=== PATIENT | female | born 1935 | race Caucasian/White ===

== ENCOUNTER 2020-06-29 07:10 | Outpatient (REF) | payer MEDICARE, SELFPAY ==
[2020-06-29 11:06] LABS: MANUAL DIFF FLAG NO
[2020-06-29 11:18] LABS: Basophils Absolute Auto 0.1 X10*3/uL (0.0-0.2); Basophils Percent Auto 0.6 % (0-2); Eosinophils Absolute Auto 0.7 X10*3/uL (0.0-0.4); Eosinophils Percent Auto 8.4 % (0-4); Hematocrit 47.8 % (37-47); Hemoglobin 16.6 g/dl (12.0-16.0); Imm Gran Abs Auto 0.02 X10*3/uL (0.00-0.03); Imm Gran Pct Auto 0.2 % (0.0-0.4); Lymphocytes Absolute Auto 1.5 X10*3/uL (1.2-4.9); Lymphocytes Percent Auto 17.9 % (20-40); Mean Corpuscular HGB Conc 34.7 g/dl (31.0-35.0); Mean Corpuscular Hemoglobin 33.3 pg (27.0-33.0); Mean Platelet Volume 10.4 fL (9.4-12.3); Monocytes Absolute Auto 0.8 X10*3/uL (0.1-1.2); Monocytes Percent Auto 9.8 % (2-11); Neutrophils Absolute Auto 5.3 X10*3/uL (2.0-8.3); Neutrophils Percent Auto 63.1 % (45-73); Platelet Count 363 X10*3/uL (160-400); Red Blood Count 4.98 X10*6/uL (4.20-5.50); Red Cell Distribution Width 13.4 % (11.0-16.0); White Blood Count 8.5 X10*3/uL (4.8-10.8)
[2020-06-29 11:25] LABS: Estimated Average Glucose 108 mg/dL; Hemoglobin A1C 149.5618 umol/L; Hemoglobin A1c % 5.4 %
[2020-06-29 11:47] LABS: Alanine Aminotransferase 23 U/L (0-31); Alkaline Phosphatase 85 U/L (39-117); Anion Gap 15 (12-20); Aspartate Amino Transferase 21 U/L (5-31); Blood Urea Nitrogen 10 mg/dL (9-16); Calcium 9.7 mg/dL (8.4-10.2); Carbon Dioxide 29 mmol/L (22-29); Chloride 94 mmol/L (96-108); Cholesterol 186 mg/dL; Estimated Glomerular Filt Rate > 60; Glucose Fasting 115 mg/dL (60-99); HDL Cholesterol 75 mg/dL; LDL Cholesterol Calculated 91 mg/dl; Potassium 3.7 mmol/L (3.3-5.1); Sodium 134 mmol/L (135-145); Total Protein 6.8 g/dL (6.5-8.0); Triglycerides 101 mg/dL
[2020-06-29 12:10] LABS: TSH reflex Free T4 0.62 uIU/mL (0.32-4.0)
[2020-06-29 12:28] LABS: Glucose Urine UA NEG (NEG); Leukocyte Esterase Urine 1+ (NEG); Nitrite Urine POS (NEG); PH 7.5 (5.0-8.0); UACC Culture Trigger YES; Urine Blood NEG (NEG); Urine Ketones NEG (NEG); Urine Protein NEG (NEG-TRACE)
[2020-06-29 12:39] LABS: Appearance Urine HAZY; Color Urine YELLOW
[2020-06-29 14:42] LABS: RBC Urine 0 /HPF (0); Squamous Epithelial Cell Urine 1+ /LPF
[2020-06-29 14:43] LABS: Renal Epithelial Cells Urine 1+ /LPF
== END 2020-06-29 07:11 | disposition home or self-care (01) ==
LOC: HO.HMGCLDS 07:10
PROVIDERS: PCP Internal Medicine; Visit Provider Internal Medicine
DX: E87.1 Hypo-osmolality and hyponatremia (principal); I10 Essential (primary) hypertension; E78.00 Pure hypercholesterolemia, unspecified; R73.01 Impaired fasting glucose; D75.1 Secondary polycythemia
CPT/HCPCS: 36415; 80053; 80061; 81001; 81003; 83036; 84443; 85025; 87086; 87088; 87186

== ENCOUNTER 2020-11-10 10:37 | Outpatient (REF) | payer MEDICARE, SELFPAY ==
--- NOTE | ~2020-11-10 | XR_ITS ---
EXAMINATION: XR LUMBOSACRAL SPINE CLINICAL INFORMATION: Chronic low back pain. COMPARISON: Report from chest radiograph 06/29/2012. TECHNIQUE: Three views of the lumbosacral spine. FINDINGS: There is normal lumbar segmentation with 5 [id number] lumbar vertebrae. There is a dextrocurvature of mid lumbar spine. There are prominent multilevel degenerative disc and degenerative facet changes, greatest at L1-L2 through L4-L5, and lesser at L5-S1. There is disc narrowing and variable vacuum disc and endplate sclerosis and vertebral spurring. Partially bridging osteophytes are present. The superior endplate of L1 shows depression of approximately 20%, likely chronic given the associated degenerative changes superiorly. There are no erosive changes. There is borderline retrolisthesis L3 on L4 and there is retrolisthesis grade 0-1 of L4 with respect to L3 and L5, likely related to the degenerative disc and degenerative facet changes. The posterior spinous processes of L4 and L5 are not well visualized. Difficult to determine if prior surgery at these levels. Clinically correlate. XR/XR lumbar spine 2-3V IMPRESSION: 1. Diffuse prominent multilevel degenerative disc and degenerative facet changes. 2. Mild superior endplate depression of L1, possibly chronic. 3. Variable retrolisthesis L3 on L4 and at L4 with respect to L3 and L5. 4. Posterior spinous processes L4 and L5 not well visualized, question prior surgery at these levels. Clinically correlate.
== END 2020-11-10 10:38 | disposition home or self-care (01) ==
LOC: HO.HMGCX 10:37
PROVIDERS: PCP Internal Medicine; Visit Provider Chiropractor
DX: M54.5 Low back pain (principal); Z91.81 History of falling
CPT/HCPCS: 72100

== ENCOUNTER 2020-11-23 08:34 | Outpatient (REF) | payer SELFPAY ==
--- NOTE | 2020-11-23 09:14 | MHC.AU.HFU ---
Hearing Instrument Follow-Up- Binaural Date of Visit: 11/23/20 Right Ear: County Agricultural Agent: Phonak Model: Virto V50-312 Serial Number: [id number] Repair Warranty: 04/08/2018 Loss and Damage Warranty: 04/08/2018 Battery Size: 312 Color: [place] Type of Wax Guard: Cerustop Dispensed By: [facility] Date of Fittin03/25/2015 Left Ear: County Agricultural Agent: Phonak Model: Virto V50-312 Serial Number: [id number] Repair Warranty: 04/08/2018 Loss and Damage Warranty: 04/08/2018 Battery Size: 312 Color: [place] Type of Wax Guard: Cerustop Dispensed By: [facility] Date of Fittin03/25/2015 Follow-Up Summary: Patient reports that the left hearing aid stopped working. Both hearing aids were inspected. Solvent Plant Operator in left instrument was occluded w/cerumen, which was cleaned out. Wax traps replaced. Microphones vacuumed. Debris cleaned out of battery compartments. Vents cleaned. Both hearing aids are amplifying clearly after maintenance. Patient did not feel any programming changes were necessary. Recommendations: Hearing instrument follow-up or maintenance as needed. Please contact our clinic with any questions or concerns. Paid $10 maintenance. Diagnosis Code(s): Primary Diagnosis: H90.3 Bilateral Sensorineural Hearing Loss Signature: Provider: Yuri Valadez, [facility]
== END 2020-11-23 08:35 | disposition home or self-care (01) ==
LOC: HO.HAP 08:34
PROVIDERS: Visit Provider Internal Medicine
DX: Z46.1 Encounter for fitting and adjustment of hearing aid (principal); H90.3 Sensorineural hearing loss, bilateral
CPT/HCPCS: 99499

== ENCOUNTER 2020-12-01 09:38 | Inpatient (IN) | payer MEDICARE, SELFPAY ==
--- NOTE | ~2020-12-01 | XR_ITS ---
EXAMINATION: XR HAND, RIGHT CLINICAL INFORMATION: Finger laceration. COMPARISON: None TECHNIQUE: PA, lateral, and oblique views of the right hand. FINDINGS: Positioning is suboptimal. Bandages overlie the second digit. Mild interphalangeal, metacarpophalangeal and first carpometacarpal degenerative joint changes are seen. There is no acute fracture or dislocation. Mild soft tissue swelling is seen in the second digit. No radiopaque foreign body. XR/XR hand RT 2V IMPRESSION: 1. Limited study showing mild soft tissue swelling in the second digit without radiopaque foreign body. No acute underlying osseous abnormality is seen. 2. Mild degenerative joint changes most consistent with osteoarthritis.
--- NOTE | ~2020-12-01 | CT_ITS ---
EXAMINATION: CT CERVICAL SPINE WITHOUT CONTRAST CLINICAL INFORMATION: Fall COMPARISON: December 01, 2020 TECHNIQUE: CT cervical spine without intrathecal contrast. Sagittal and coronal reconstructions. This CT examination was performed using dose optimization techniques as appropriate, variously including the following: *Automated exposure control *Adjustment of mA and/or kV according to patient size (this includes techniques or standardized protocols for targeted exams where dose is matched to indication/reason for exam; i.e. extremities or head) *Use of iterative reconstruction technique DLP: 297.20 mGy-cm FINDINGS: No abnormal prevertebral soft tissue swelling is seen. No acute cervical spine fracture is noted. Paraspinal muscle soft tissue planes are maintained. There is disc space narrowing at this C5-C6 and C6-C7 levels with posterior spurring. There is spurring at the C1-C2 disc level. There is facet arthropathy seen C3-C5. No significant neural foraminal narrowing identified. There is a 9 x 5 mm calcified meningioma about the left petrous ridge adjacent to the cerebellar pontine angle. Pterygoid plates intact. Visualized paranasal sinuses and mastoid air cells unremarkable. There are significant changes of paraseptal and centrilobular emphysema within the lung apices bilateral. Bilateral apical pleural plaques with calcification noted. There is flattening of the mandibular condyles bilaterally. CT/CT cervical spine wo con IMPRESSION: No acute cervical spine fracture. Cervical spondylosis at multiple levels as described. 9 x 5 mm calcified meningioma about the left cerebellar pontine angle.
--- NOTE | ~2020-12-01 | CT_ITS ---
EXAMINATION: CT HEAD WITHOUT CONTRAST CLINICAL INFORMATION: Fall COMPARISON: December 01, 2020 and February 25, 2010 TECHNIQUE: Contiguous axial imaging was performed from the skull base to vertex without intravenous administration of contrast. This CT examination was performed using dose optimization techniques as appropriate, variously including the following: *Automated exposure control *Adjustment of mA and/or kV according to patient size (this includes techniques or standardized protocols for targeted exams where dose is matched to indication/reason for exam; i.e. extremities or head) *Use of iterative reconstruction technique DLP: 650.10 mGy-cm FINDINGS: There is no evidence of acute intracranial hemorrhage or new territorial infarction. No abnormal mass effect or midline shift is seen. There is periventricular white matter low density consistent with microangiopathy. Lacunar infarct is seen within the right cordate head. There is diminished density within the left central summary ovale which is unchanged. There is also a lacunar infarct involving the left anterior limb of the internal capsule. No extra-axial fluid collections are identified. The ventricles are normal in size. There is no abnormal attenuation within the brain parenchyma. The osseous structures and soft tissues are normal. The mastoid air cells and visualized portions of the paranasal sinuses are well aerated. Carotid and vertebral artery calcification present. CT/CT head/brain wo con IMPRESSION: No acute intracranial pathology. 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 No change from study of December 01, 2020
--- NOTE | ~2020-12-01 | CT_ITS ---
EXAMINATION: CT BRAIN AND CT CERVICAL SPINE WITHOUT CONTRAST. CLINICAL INFORMATION: Fall. COMPARISON: None TECHNIQUE: Axial 5 mm thin and reformatted 2 mm thin sagittal and coronal images of brain were obtained. 3 mm thin axial and reformatted 2 mm thin sagittal and coronal images of cervical spine were obtained. DLP 858 mGy FINDINGS: Brain: There is no acute intra-axial, extra-axial bleed, collection, masses or midline shift. No acute infarction evolution seen. The lateral ventricles are symmetrical in size and configuration without enlargement. The diego to white matter differentiation is maintained normal. There is is small 7 mm hypodensity in the left centrum semiovale likely small lacunar infarction of indeterminate age on axial image 14/8. Bone windows reveal no calvarial abnormality. There is no scalp soft tissue abnormality. Bilateral paranasal sinuses and mastoid air cells are well-aerated. Cervical spine: There is normal cervical lordosis. The vertebral heights, alignment is normal. There is loss of C6-C7 disc height with ventral, posterior spondylosis and moderate left facet joint arthropathy and hypertrophy. Rest of the disc heights are normal. The craniovertebral junction appears normal. There is mild superior osteophytosis C1-C2 disc level. There is mild right C5-C6 facet joint arthropathy and hypertrophy. The prevertebral, parapharyngeal and paravertebral soft tissues are normal. The airway is widely patent. Is diffuse emphysematous changes are seen in the lung apices with bullous findings. CT/CT cervical spine wo con IMPRESSION: No acute intracranial process seen. Small lacunar infarcts left centrum semiovale of indeterminate age. No mass effect. There is no acute fracture, dislocation subluxation seen in the cervical spine. There are degenerative disc changes with moderate left facet joint arthropathy and hypertrophy C6-C7 disc level.
--- NOTE | ~2020-12-01 | NM_ITS ---
EXAMINATION: THREE PHASE BONE SCAN CLINICAL INFORMATION: Lower back pain, concern for discitis.. COMPARISON: No previous bone scan is available for comparison. The diagnostic CT scan of the abdomen and pelvis, dated 12/01/2020, is available for comparison.. TECHNIQUE: Initial rapid sequence images were obtained over the lumbosacral and lower thoracic spine in the anterior and posterior projections during the bolus injection of 18 mCi Tc-99m MDP. Static images of the whole-body with multiple projections of the thorax and pelvis were then obtained 3.25 hours post injection. FINDINGS: Initial rapid sequence images show no foci of abnormally increased flow in the visualized lumbosacral and lower thoracic spine. The visualized vascular flow and flow to the kidneys, liver, and spleen appear unremarkable The delayed static images show: In the head, no significant abnormalities are present. In the thoracic cage and upper extremities, no significant abnormalities are present. In the spine, there is a mild thoracolumbar scoliosis with lumbar convexity to the right. There is mildly increased activity in the T12 and L1 vertebra, likely involving the vertebral bodies. Additional abnormalities are present in the lower lumbar spine, most prominently in the right posterior elements at L4-L5. In the pelvis, no significant abnormalities are present. In the lower extremities, there is a mild diffuse increase in activity which is just barely perceptible in the left hip. There are also very mild foci of increased activity present in both knees. The CT scan dated 12/01/2020 shows degenerative changes in the lumbosacral spine the correspond to bone scan abnormalities described above. There is to approximately 40% anterior compression deformity of L1 and approximately 30% compression deformity of the superior endplate of T8. The latter shows no corresponding bone scan abnormality suggesting it is chronic, but some abnormality is present at L1 on this bone scan suggesting this is a subacute compression fracture, or possibly compression fractures superimposed on chronic degenerative changes. NM/NM bone 3 phase IMPRESSION: Nonspecific abnormalities in the lumbosacral and lower thoracic spine are most likely degenerative in etiology possibly with a superimposed compression fracture at L1. There are no flow abnormalities that would strongly suggest active infection in this region.
--- NOTE | ~2020-12-01 | CT_ITS ---
EXAMINATION: CT CHEST, ABDOMEN AND PELVIS WITH CONTRAST CLINICAL INFORMATION: Pain status post fall. COMPARISON: None TECHNIQUE: Multidetector volumetric imaging was performed of the chest, abdomen and pelvis without administration of intravenous contrast. Sagittal and coronal reformatted images were obtained on the technologist's workstation. Lack of intravenous and oral contrast limits visceral evaluation. This CT examination was performed using dose optimization techniques as appropriate, variously including the following: *Automated exposure control *Adjustment of mA and/or kV according to patient size (this includes techniques or standardized protocols for targeted exams where dose is matched to indication/reason for exam; i.e. extremities or head) DLP: 602 mGy-cm FINDINGS: CHEST: LUNGS/PLEURA/AIRWAYS: Moderate to severe upper lobe predominant centrilobular paraseptal emphysema is seen. Mild biapical pleural thickening and scarring with mild calcification is seen. Nodular scarring with calcification is seen posteriorly in the right upper lobe as well. No suspicious nodules are seen. Mild bibasilar linear atelectasis versus scarring is seen. There are no pleural effusions. The airways are patent. MEDIASTINUM: The thyroid gland shows a coarsely calculi nodule anteriorly in the right midpole measuring 1.1 cm (image 8, series 3). A smaller calcification posteriorly in the midpole measures 0.3 cm. The thyroid gland is otherwise unremarkable. Mild atherosclerosis is seen in the thoracic aorta. The ascending aorta measures up to 4.1 cm in AP dimension (image 35, series 3). Mild coronary artery calcifications are seen. There is a very small pericardial effusion. There is cardiac compression from an overlying pectus excavatum deformity. CHEST LYMPH NODES: No mediastinal or hilar lymphadenopathy is seen. SOFT TISSUES: Unremarkable. ABDOMEN/PELVIS: LIVER, GALLBLADDER, AND BILIARY TREE: Hepatic prominence with extension into the left upper quadrant, but no focal abnormality. The gallbladder is unremarkable. PANCREAS: Unremarkable. SPLEEN: Unremarkable. ADRENAL GLANDS: Unremarkable. KIDNEYS AND URETERS: No retained right kidney without other significant renal/ureteral abnormality bilaterally. BLADDER: Unremarkable. GASTROINTESTINAL TRACT: The stomach, small bowel and appendix are unremarkable. The colon shows scattered mild to moderate diverticulosis, most pronounced in the descending and sigmoid colon. LYMPH NODES: No lymphadenopathy. VASCULAR: Moderate to severe atherosclerosis in the abdominal aorta and iliac vessels, most pronounced in the infrarenal segment of the abdominal aorta without aneurysmal dilatation. PELVIC VISCERA: Unremarkable. MUSCULOSKELETAL: There is approximate 30% compression deformity of the superior endplate of T8. Additionally is an approximate 40% anterior compression deformity of L1. Severe degenerative disc disease is seen from L1 to the L4-5. Mild lumbar dextro scoliosis is seen as well with apex at L3-4. SOFT TISSUES: Unremarkable. CT/CT abdomen pelvis wo con IMPRESSION: 1. No definitive acute abnormality in the chest, abdomen and pelvis. 2. Multilevel degenerative changes in the thoracolumbar spine. Multilevel vertebral body compression deformities as detailed above do not demonstrate acute features. Pectus excavatum deformity. 3. Several incidental findings detailed above without acute abnormality.
--- NOTE | 2020-12-01 09:30 | ED_ITS ---
HPI - Weakness General Chief complaint: Weakness Stated complaint: failure to thrive Time Seen by Provider: 12/01/20 09:48 Source: patient, EMS and old records reviewed Mode of arrival: EMS Limitations: other (poor historian) History of Present Illness MD Complaint: generalized weakness and difficulty walking Onset (ago): day(s) (?2) Duration: constant Location: generalized Migration: none Severity: moderate Relieving factors: none Exacerbating factors: movement Context: other (states she has fallen 3 to 5 times, she is weak, her neck and back hurt, denies LOC) Associated symptoms: loss of appetite and myalgias Related Data Previous Rx's Medication Instructions Recorded potassium chloride 10 mEq 10 meq PO DAILY 90 Days #90 tab 07/09/20 tablet,extended release (Klor-Con) lorazepam 1 mg tablet 0.5 mg PO BID PRN 30 Days #60 tab 10/02/20 hydrochlorothiazide 25 mg tablet 25 mg PO DAILY 90 Days #90 tab 11/06/20 losartan 100 mg tablet 100 mg PO DAILY #90 tab 11/08/20 Allergies Allergy/AdvReac Type Severity Reaction Status Date / Time No Known Allergies Allergy Verified 07/09/20 08:52 [No Known Allergies*] Review of Systems Review of Systems: Constitutional : No Weight loss, No Fever, No Chills, pos Fatigue, pos Malaise ENT/Mouth : No sore throat, No Rhinorrhea Eyes: No Eye Pain, No Swelling, No Redness Cardiovascular : No Chest Pain, No SOB, No Dyspnea on Exertion, No Orthopnea, No Edema, No Palpitations Respiratory : No Cough, No Sputum, No Wheezing Gastrointestinal : No Nausea, No Vomiting, No Diarrhea, No Constipation, No abdominal Pain, No Hematochezia, No Melena Genitourinary : No Dysuria, No Urinary Frequency, No Hematuria, Musculoskeletal : pos joint pain, pos Myalgias, No Joint Swelling Skin : No Skin Lesions, No rash Neuro : pos Weakness, No Numbness, No Dizziness, No Headache Psych : No Anxiety/Panic, No Depression Heme/Lymph: No Bruising, No Bleeding,No Lymphadenopathy Endocrine : No Polyuria, No Polydipsia All other systems reviewed and are negative PMFSH Past Medical History Attestation statement: The following information was validated with the patient. Medical History Alcohol use Anxiety Benign essential hypertension Dermatitis, eczematoid Hyponatremia Impaired fasting glucose Polycythemia Pure hypercholesterolemia Smoker Surgical History History of cataract extraction with lens replacement Status post total abdominal hysterectomy and bilateral salpingo-oophorectomy (RAMON-BSO) Family History Family History Other Family history non-contributory Social History Social History Alcohol intake: current Cigarettes Per Day: 8 Advance Directives: No Advance Directives Information Provided: Yes Physical Exam Vital Signs: Vital Signs: Last Vital Signs Temp 97.4 F 12/01/20 09:51 Pulse 104 H 12/01/20 09:51 Resp 18 12/01/20 09:51 BP 117/63 12/01/20 09:51 Body Mass Index 17.5 Appearance: Alert. Oriented X3. No acute distress. Withdrawn, cachectic, frail Eyes: Pupils equal, round and reactive to light. ENT: Pharynx normal. Neck: Normal inspection. Neck supple. CVS: Normal heart rate and rhythm. Pulses normal. Respiratory: No respiratory distress. Breath sounds normal. Abdomen: Soft and nontender. Skin: Skin warm and dry. pale skin color. poor skin turgor. Extremities: No lower extremity edema. multiple stages of bruising noted on extremities Neuro: Oriented X 3. No motor deficit. No sensory deficit. Course Course Course Narrative: plan for admit, repleting K empiric rocephin possible UTI boyd scan negative for acute trauma MDM - Weakness MDM Narrative Medical decision making narrative: 85 yo female with hx of ETOH HLD, hyponatremia comes in with weakness and falls she is a poor historian will obtain labs boyd CT scan for trauma, anticipate admission or rehab, hx of ETOH abuse Lab Data Result diagrams: 12/01/20 10:01 12/01/20 10:01 Labs: Lab Results 12/01/20 12/01/20 12/01/20 Range/Units 10:01 10:01 10:01 WBC 34.1 H* (4.8-10.8) X10*3/uL RBC 4.22 (4.20-5.50) X10*6/uL Hgb 14.1 (12.0-16.0) g/dl Hct 37.9 D (37-47) % MCV 89.8 (80-98) fL MCH 33.4 H (27.0-33.0) pg MCHC 37.2 H (31.0-35.0) g/dl RDW 13.1 (11.0-16.0) % Plt Count 304 (160-400) X10*3/uL MPV 9.8 (9.4-12.3) fL Immature Gran % (Auto) Cancelled Neut % (Auto) Cancelled Lymph % (Auto) Cancelled Freeborn % (Auto) Cancelled Eos % (Auto) Cancelled Baso % (Auto) Cancelled Lymph # (Auto) Cancelled Freeborn # (Auto) Cancelled Eos # (Auto) Cancelled Baso # (Auto) Cancelled Abs Immat Gran (auto) Cancelled Absolute Neuts (auto) Cancelled Absolute Nucleated RBC 0.000 (0.0-0.012) X10*3/uL Nucleated RBC % (auto) 0.0 (0.0-0.2) /100WBC Neutrophils % (Manual) 86 H (45-73) % Band Neutrophils % 10 H (3-5) % Lymphocytes % (Manual) 1 L (20-40) % Monocytes % (Manual) 3 (2-11) % Abs Neuts (Manual) 32.7 H (2.2-7.9) X10*3/uL Lymphocytes # (Manual) 0.3 L (0.6-4.8) X10*3/uL Monocytes # (Manual) 1.0 (0.0-1.2) X10*3/uL Toxic Vacuolation PRESENT Platelet Estimate NORMAL (NORMAL) Large Platelets PRESENT Plt Morphology Comment NOTED RBC Morphology NOTED Angel Cells 2+ (3-5) /OIF PT (9.9-13.0) SEC INR (0.9-1.1) APTT (24.1-38.0) SEC Sodium 129 L (135-145) mmol/L Potassium 2.8 L D (3.3-5.1) mmol/L Chloride 92 L (96-108) mmol/L Carbon Dioxide 23 (22-29) mmol/L Anion Gap 17 (12-20) BUN 29 H D (9-16) mg/dL Creatinine 0.94 (0.5-1.4) mg/dL Estim Creat Clear Calc 36.3 Estimated GFR 57 Random Glucose 102 (60-115) mg/dL Lactic Acid 2.4 H* (0.5-2.0) mmol/L Calcium 9.8 (8.4-10.2) mg/dL Magnesium 1.8 (1.6-2.6) mg/dL Total Bilirubin 1.5 H (0.0-1.0) mg/dL Direct Bilirubin 0.7 H (0.0-0.5) mg/dL AST 42 H D (5-31) U/L ALT 28 (0-31) U/L Alkaline Phosphatase 115 D (39-117) U/L Total Creatine Kinase 872 H (26-140) U/L Troponin I High Sens (<3.5-17.0) ng/L Total Protein 5.5 L (6.5-8.0) g/dL Albumin 3.1 L D (3.5-5.0) g/dL Lipase 4 L (8-78) U/L Ethyl Alcohol mg/dL COVID-19 (RANDY) (Negative) COVID-19 Clin Com 12/01/20 12/01/20 12/01/20 Range/Units 10:01 10:01 10:01 WBC (4.8-10.8) X10*3/uL RBC (4.20-5.50) X10*6/uL Hgb (12.0-16.0) g/dl Hct (37-47) % MCV (80-98) fL MCH (27.0-33.0) pg MCHC (31.0-35.0) g/dl RDW (11.0-16.0) % Plt Count (160-400) X10*3/uL MPV (9.4-12.3) fL Immature Gran % (Auto) Neut % (Auto) Lymph % (Auto) [place] % (Auto) Eos % (Auto) Baso % (Auto) Lymph # (Auto) [place] # (Auto) Eos # (Auto) Baso # (Auto) Abs Immat Gran (auto) Absolute Neuts (auto) Absolute Nucleated RBC (0.0-0.012) X10*3/uL Nucleated RBC % (auto) (0.0-0.2) /100WBC Neutrophils % (Manual) (45-73) % Band Neutrophils % (3-5) % Lymphocytes % (Manual) (20-40) % Monocytes % (Manual) (2-11) % Abs Neuts (Manual) (2.2-7.9) X10*3/uL Lymphocytes # (Manual) (0.6-4.8) X10*3/uL Monocytes # (Manual) (0.0-1.2) X10*3/uL Toxic Vacuolation Platelet Estimate (NORMAL) Large Platelets Plt Morphology Comment RBC Morphology Angel Cells /OIF PT 13.4 H (9.9-13.0) SEC INR 1.2 H (0.9-1.1) APTT 31.2 (24.1-38.0) SEC Sodium (135-145) mmol/L Potassium (3.3-5.1) mmol/L Chloride (96-108) mmol/L Carbon Dioxide (22-29) mmol/L Anion Gap (12-20) BUN (9-16) mg/dL Creatinine (0.5-1.4) mg/dL Estim Creat Clear Calc Estimated GFR Random Glucose (60-115) mg/dL Lactic Acid (0.5-2.0) mmol/L Calcium (8.4-10.2) mg/dL Magnesium (1.6-2.6) mg/dL Total Bilirubin (0.0-1.0) mg/dL Direct Bilirubin (0.0-0.5) mg/dL AST (5-31) U/L ALT (0-31) U/L Alkaline Phosphatase (39-117) U/L Total Creatine Kinase (26-140) U/L Troponin I High Sens 38.8 H* (<3.5-17.0) ng/L Total Protein (6.5-8.0) g/dL Albumin (3.5-5.0) g/dL Lipase (8-78) U/L Ethyl Alcohol < 10 mg/dL COVID-19 (RANDY) (Negative) COVID-19 Clin Com 12/01/20 Range/Units 11:00 WBC (4.8-10.8) X10*3/uL RBC (4.20-5.50) X10*6/uL Hgb (12.0-16.0) g/dl Hct (37-47) % MCV (80-98) fL MCH (27.0-33.0) pg MCHC (31.0-35.0) g/dl RDW (11.0-16.0) % Plt Count (160-400) X10*3/uL MPV (9.4-12.3) fL Immature Gran % (Auto) Neut % (Auto) Lymph % (Auto) [place] % (Auto) Eos % (Auto) Baso % (Auto) Lymph # (Auto) [place] # (Auto) Eos # (Auto) Baso # (Auto) Abs Immat Gran (auto) Absolute Neuts (auto) Absolute Nucleated RBC (0.0-0.012) X10*3/uL Nucleated RBC % (auto) (0.0-0.2) /100WBC Neutrophils % (Manual) (45-73) % Band Neutrophils % (3-5) % Lymphocytes % (Manual) (20-40) % Monocytes % (Manual) (2-11) % Abs Neuts (Manual) (2.2-7.9) X10*3/uL Lymphocytes # (Manual) (0.6-4.8) X10*3/uL Monocytes # (Manual) (0.0-1.2) X10*3/uL Toxic Vacuolation Platelet Estimate (NORMAL) Large Platelets Plt Morphology Comment RBC Morphology Angel Cells /OIF PT (9.9-13.0) SEC INR (0.9-1.1) APTT (24.1-38.0) SEC Sodium (135-145) mmol/L Potassium (3.3-5.1) mmol/L Chloride (96-108) mmol/L Carbon Dioxide (22-29) mmol/L Anion Gap (12-20) BUN (9-16) mg/dL Creatinine (0.5-1.4) mg/dL Estim Creat Clear Calc Estimated GFR Random Glucose (60-115) mg/dL Lactic Acid (0.5-2.0) mmol/L Calcium (8.4-10.2) mg/dL Magnesium (1.6-2.6) mg/dL Total Bilirubin (0.0-1.0) mg/dL Direct Bilirubin (0.0-0.5) mg/dL AST (5-31) U/L ALT (0-31) U/L Alkaline Phosphatase (39-117) U/L Total Creatine Kinase (26-140) U/L Troponin I High Sens (<3.5-17.0) ng/L Total Protein (6.5-8.0) g/dL Albumin (3.5-5.0) g/dL Lipase (8-78) U/L Ethyl Alcohol mg/dL COVID-19 (RANDY) Negative (Negative) COVID-19 Clin Com See Note ECG Data Attestation: I personally reviewed and interpreted this ECG as follows: ECG interpretation date: 12/01/20 ECG interpretation time: 09:49 Interpretation: Rate: 122 Rhythm: sinus tachycardia with PACs Stout: normal tall P waves. Normal LESIA. Normal QRS complex. ST T wave : nonspecific, ?u waves qTC: normal prior studies: no acute ischemia The study has been interpreted contemporaneously by me. . Discharge Plan Discharge Clinical Impression: Acute hyponatremia, Acute hypokalemia, Falls, Acidosis, lactic, Leukocytosis, Adult failure to thrive Patient Disposition: Admitted As Inpatient Prescriptions: No Action lorazepam 1 mg tablet 0.5 mg PO BID PRN (Reason: anxiety) 30 Days Qty: 60 RF: 0 hydrochlorothiazide 25 mg tablet 25 mg PO DAILY 90 Days Qty: 90 RF: 0 losartan 100 mg tablet 100 mg PO DAILY Qty: 90 RF: 1 potassium chloride [Klor-Con 10] 10 mEq tablet extended release 10 meq PO DAILY 90 Days Qty: 90 RF: 3
[2020-12-01 09:34] VITALS: BP 115/69; PULSE 78; RESP 18
--- NOTE | 2020-12-01 09:38 | ECG_ITS ---
Test Reason : FALL Blood Pressure : / mmHG Vent. Rate : 122 BPM Atrial Rate : 133 BPM P-R Int : 200 ms QRS Dur : 082 ms QT Int : 286 ms P-R-T Axes : 080 078 029 degrees QTc Int : 407 ms Sinus tachycardia with premature supra-ventricular complexes Low voltage QRS Cannot rule out Anteroseptal infarct (cited on or before 13-NOV-2015) Abnormal ECG When compared with ECG of 13-NOV-2015 09:48, Vent. rate has increased BY 48 BPM T wave inversion now evident in Inferior leads Premature supraventricular complexes are now Present Referred By: Elisha Hunt Electronically Signed By:YOHANA ANTONIO
[2020-12-01 09:51] VITALS: BP 104/70; BP 117/63; PULSE 104; RESP 18; TEMP 36.3; BMI 17.5
[2020-12-01] MEDS: 0.9 % Sodium Chloride 1,000 ML 999 ML IVCONT (10:07)
[2020-12-01 10:14] LABS: Hematocrit 37.9 % (37-47); Hemoglobin 14.1 g/dl (12.0-16.0); Mean Corpuscular HGB Conc 37.2 g/dl (31.0-35.0); Mean Corpuscular Hemoglobin 33.4 pg (27.0-33.0); Mean Corpuscular Volume 89.8 fL (80-98); Mean Platelet Volume 9.8 fL (9.4-12.3); Platelet Count 304 X10*3/uL (160-400); Red Blood Count 4.22 X10*6/uL (4.20-5.50); Red Cell Distribution Width 13.1 % (11.0-16.0)
[2020-12-01 10:20] LABS: INTERNATIONAL NORM RATIO 1.2 (0.9-1.1); Prothrombin Time 13.4 SEC (9.9-13.0)
[2020-12-01 10:21] LABS: White Blood Count 34.1 X10*3/uL (4.8-10.8)
[2020-12-01 10:22] LABS: Partial Thromboplastin Time 31.2 SEC (24.1-38.0)
[2020-12-01 10:32] LABS: Ethanol < 10 mg/dL
[2020-12-01] MEDS: cefTRIAXone sodium 1 GM in 0.9 % Sodium Chloride 50 ML IV (10:33)
[2020-12-01] MEDS: Magnesium Sulfate/H2O 2 GM/50 ML PIGGYBACK IV (10:33)
[2020-12-01 10:37] LABS: Alanine Aminotransferase 28 U/L (0-31); Albumin Level 3.1 g/dL (3.5-5.0); Alkaline Phosphatase 115 U/L (39-117); Anion Gap 17 (12-20); Aspartate Amino Transferase 42 U/L (5-31); Bilirubin Direct 0.7 mg/dL (0.0-0.5); Bilirubin Total 1.5 mg/dL (0.0-1.0); Blood Urea Nitrogen 29 mg/dL (9-16); Calcium 9.8 mg/dL (8.4-10.2); Carbon Dioxide 23 mmol/L (22-29); Chloride 92 mmol/L (96-108); Creatinine Clr Calc Pharmacy 36.3; Estimated Glomerular Filt Rate 57; Glucose Random 102 mg/dL (60-115); Lipase 4 U/L (8-78); Magnesium 1.8 mg/dL (1.6-2.6); Potassium 2.8 mmol/L (3.3-5.1); Sodium 129 mmol/L (135-145); Total Protein 5.5 g/dL (6.5-8.0)
[2020-12-01 10:40] LABS: Lactic Acid 2.4 mmol/L (0.5-2.0)
[2020-12-01 10:44] LABS: Band Neutrophils Percent 10 % (3-5); Lymphocytes Absolute Manual 0.3 X10*3/uL (0.6-4.8); Lymphocytes Percent Manual 1 % (20-40); Monocytes Percent Manual 3 % (2-11); Neutrophils Absolute Manual 32.7 X10*3/uL (2.2-7.9); Neutrophils Percent Manual 86 % (45-73)
[2020-12-01 10:45] LABS: Large Platelet PRESENT; Platelet Estimate NORMAL (NORMAL); Platelet Morphology Comment NOTED
[2020-12-01 10:46] LABS: Burr Cells 2+ (3-5) /OIF
[2020-12-01 10:47] LABS: RBC Morphology NOTED; Toxic Vacuolation PRESENT
[2020-12-01] MEDS: Thiamine HCL 100 MG in 0.9 % Sodium Chloride 100 ML 202 MG IV (10:47)
[2020-12-01 10:57] LABS: Troponin-I High Sensitivity 38.8 ng/L (<3.5-17.0)
[2020-12-01] MEDS: Potassium Chloride ER 20 MEQ TAB.ER.PRT 40 MEQ PO (11:17)
[2020-12-01] MEDS: Potassium Chloride/H20 10 MEQ/100 ML PIGGYBACK 100 MEQ IV ×2 (11:18→13:55)
[2020-12-01 11:32] LABS: COVID-19 Test Negative (Negative); IDNOW Serial# 9DD0AD1C
--- NOTE | 2020-12-01 11:34 | PHA.MEDREC ---
Pharmacy Consult ? Medication Reconciliation Pharmacy has completed the medication reconciliation. There are no remarkable issues for provider's attention. Sonam Gardner, DenniseD
[2020-12-01 12:12] LABS: Reflex Lactate? Lactic Acid Added
--- NOTE | 2020-12-01 12:48 | PM.IMHP ---
History of Present Illness Date of Service: 12/01/20 Chief Complaint: weakness 85F vague historian. asked son-in-law to call 911 this AM as she felt too weak to get out of bed. reports several falls over last few days, generalized weakness. denies specific complaints such as fever, chills, cough, sob, chest pain, diarrhea, n/v, dysuria or frequency. in ED found to have leukocytosis, hypokalemia, hyponatremia. given rocephin, potassium, and iv fluids. Review of Systems Review of Systems: Constitutional: Denies fever, denies Chills Eyes: denies blurry vision ENT: denies sore throat CVS: denies chest pain Respiratory: Denies dyspnea GI: no abdominal pain : denies dysuria MSK: denies neck pain Skin: denies rash Neuro: denies specific motor weakness Psych: denies suicidal ideation Endocrine: denies heat/cold intolerance Hematologic: denies easy bleeding Allergy: denies hives [facility] Medical History Alcohol use Anxiety Benign essential hypertension Dermatitis, eczematoid Hyponatremia Impaired fasting glucose Polycythemia Pure hypercholesterolemia Smoker Family History Other Family history non-contributory Surgical History History of cataract extraction with lens replacement Status post total abdominal hysterectomy and bilateral salpingo-oophorectomy (RAMON-BSO) Social History Alcohol intake: current Cigarettes Per Day: 8 Advance Directives: No Advance Directives Information Provided: Yes Meds Allergies Allergy/AdvReac Type Severity Reaction Status Date / Time No Known Allergies Allergy Verified 07/09/20 08:52 [No Known Allergies*] Active Medications: Current Medications Generic Name Dose Route Start Last Admin Trade Name Freq PRN Reason Stop Dose Admin Potassium Chloride 10 meq in 100 mls @ 100 mls/hr 12/01/20 11:00 12/01/20 11:18 IV 12/01/20 12:59 100 mls/hr Q1H NAI Administration Lactated Ringer's 1,000 mls @ 80 mls/hr 12/01/20 12:45 Lr IVCONT .[id number] NAI Ceftriaxone Sodium 1 gm/ 50 mls @ 100 mls/hr 12/02/20 08:00 Sodium Chloride IV Q24H [facility] Lorazepam 0.5 mg 12/01/20 12:44 Lorazepam 0.5 Mg Tablet PO BID PRN anxiety Losartan Potassium 100 mg 12/02/20 09:00 Losartan Potassium 50 Mg Tablet PO DAILY [facility] Protocol Pharmacy Consult 1 each 12/01/20 09:38 Consult Rx Perform Med Rec MISCELLANE ONCE PRN Consult order Potassium Chloride 10 meq 12/02/20 09:00 Potassium Chloride Er 10 Meq Capsule.Er PO DAILY [facility] Physical Exam Vital Signs and Narrative: Vital Signs: Last Vital Signs Temp 97.4 F 12/01/20 09:51 Pulse 104 H 12/01/20 09:51 Resp 18 12/01/20 09:51 BP 117/63 12/01/20 09:51 Body Mass Index 17.5 General: no acute distress, alert, frail appearing HEENT: atraumatic, hard of hearing Neck: normal to visual inspection CVS: S1, S2, rapid irregular Resp: diminished Chest: non tender GI: soft, non tender, non distended : no CVA tenderness Skin: no rashes Extremities: no edema Neuro: Oriented X3, grossly intact Psych: cooperative Results Labs CBC and Chem 7: 12/01/20 10:01 12/01/20 10:01 Labs: Laboratory Results - last 24 hr 12/01/20 12/01/20 12/01/20 10:01 10:01 10:01 MCV 89.8 MCH 33.4 H MCHC 37.2 H RDW 13.1 Plt Count 304 MPV 9.8 Immature Gran % (Auto) Cancelled Neut % (Auto) Cancelled Lymph % (Auto) Cancelled Boundary % (Auto) Cancelled Eos % (Auto) Cancelled Baso % (Auto) Cancelled Lymph # (Auto) Cancelled Boundary # (Auto) Cancelled Eos # (Auto) Cancelled Baso # (Auto) Cancelled Abs Immat Gran (auto) Cancelled Absolute Neuts (auto) Cancelled Absolute Nucleated RBC 0.000 Nucleated RBC % (auto) 0.0 Neutrophils % (Manual) 86 H Band Neutrophils % 10 H Lymphocytes % (Manual) 1 L Monocytes % (Manual) 3 Abs Neuts (Manual) 32.7 H Lymphocytes # (Manual) 0.3 L Monocytes # (Manual) 1.0 Toxic Vacuolation PRESENT Platelet Estimate NORMAL Large Platelets PRESENT Plt Morphology Comment NOTED RBC Morphology NOTED [place] Cells 2+ (3-5) PT INR APTT Anion Gap 17 Estim Creat Clear Calc 36.3 Estimated GFR 57 Random Glucose 102 Lactic Acid 2.4 H* Calcium 9.8 Magnesium 1.8 Total Bilirubin 1.5 H Direct Bilirubin 0.7 H AST 42 H D ALT 28 Alkaline Phosphatase 115 D Total Creatine Kinase 872 H Troponin I High Sens Total Protein 5.5 L Albumin 3.1 L D Lipase 4 L Ethyl Alcohol COVID-19 (RANDY) COVID-19 [facility] Com 12/01/20 12/01/20 12/01/20 10:01 10:01 10:01 MCV MCH MCHC RDW Plt Count MPV Immature Gran % (Auto) Neut % (Auto) Lymph % (Auto) Boundary % (Auto) Eos % (Auto) Baso % (Auto) Lymph # (Auto) Boundary # (Auto) Eos # (Auto) Baso # (Auto) Abs Immat Gran (auto) Absolute Neuts (auto) Absolute Nucleated RBC Nucleated RBC % (auto) Neutrophils % (Manual) Band Neutrophils % Lymphocytes % (Manual) Monocytes % (Manual) Abs Neuts (Manual) Lymphocytes # (Manual) Monocytes # (Manual) Toxic Vacuolation Platelet Estimate Large Platelets Plt Morphology Comment RBC Morphology Angel Cells PT 13.4 H INR 1.2 H APTT 31.2 Anion Gap Estim Creat Clear Calc Estimated GFR Random Glucose Lactic Acid Calcium Magnesium Total Bilirubin Direct Bilirubin AST ALT Alkaline Phosphatase Total Creatine Kinase Troponin I High Sens 38.8 H* Total Protein Albumin Lipase Ethyl Alcohol < 10 COVID-19 (RANDY) COVID-19 [facility] Com 12/01/20 11:00 MCV MCH MCHC RDW Plt Count MPV Immature Gran % (Auto) Neut % (Auto) Lymph % (Auto) Boundary % (Auto) Eos % (Auto) Baso % (Auto) Lymph # (Auto) Boundary # (Auto) Eos # (Auto) Baso # (Auto) Abs Immat Gran (auto) Absolute Neuts (auto) Absolute Nucleated RBC Nucleated RBC % (auto) Neutrophils % (Manual) Band Neutrophils % Lymphocytes % (Manual) Monocytes % (Manual) Abs Neuts (Manual) Lymphocytes # (Manual) Monocytes # (Manual) Toxic Vacuolation Platelet Estimate Large Platelets Plt Morphology Comment RBC Morphology Angel Cells PT INR APTT Anion Gap Estim Creat Clear Calc Estimated GFR Random Glucose Lactic Acid Calcium Magnesium Total Bilirubin Direct Bilirubin AST ALT Alkaline Phosphatase Total Creatine Kinase Troponin I High Sens Total Protein Albumin Lipase Ethyl Alcohol COVID-19 (RANDY) Negative COVID-19 Clin Com See Note Imaging Radiologist's Impressions: Impressions Abdomen/Pelvis CT 12/01/20 09:38 IMPRESSION: 1. No definitive acute abnormality in the chest, abdomen and pelvis. 2. Multilevel degenerative changes in the thoracolumbar spine. Multilevel vertebral body compression deformities as detailed above do not demonstrate acute features. Pectus excavatum deformity. 3. Several incidental findings detailed above without acute abnormality. Cervical Spine CT 12/01/20 09:38 IMPRESSION: No acute intracranial process seen. Small lacunar infarcts left centrum semiovale of indeterminate age. No mass effect. There is no acute fracture, dislocation subluxation seen in the cervical spine. There are degenerative disc changes with moderate left facet joint arthropathy and hypertrophy C6-C7 disc level. Chest CT 12/01/20 09:38 IMPRESSION: 1. No definitive acute abnormality in the chest, abdomen and pelvis. 2. Multilevel degenerative changes in the thoracolumbar spine. Multilevel vertebral body compression deformities as detailed above do not demonstrate acute features. Pectus excavatum deformity. 3. Several incidental findings detailed above without acute abnormality. Head CT 12/01/20 09:38 IMPRESSION: No acute intracranial process seen. Small lacunar infarcts left centrum semiovale of indeterminate age. No mass effect. There is no acute fracture, dislocation subluxation seen in the cervical spine. There are degenerative disc changes with moderate left facet joint arthropathy and hypertrophy C6-C7 disc level. Assessment and Plan (1) Acute hyponatremia: Status: Acute 85F presented with weakness and falls, found to have hypokalemia, hyponatremia, leukocytosis weakness and falls failure to thrive, possible due to alcohol dependence, vs infectious etiology vs elecrolyte abnormalities PT eval hypokalemia replace and monitor hold hctz hyponatremia multifactorial, hold hctz IV fluids monitor leukocytosis some concentration, ?infection, will empirically treat with rocephin, follow up cultures monitoir cbc alcohol dependence no evidence of withdrawal at this time, monitor ciwa htn losartan Quality Stroke Does the patient have a stroke diagnosis?: No VTE Prior VTE?: No VTE Risk Level:: Medical - moderate - high VTE Device Contraindication: Treatment Not Indicated VTE Drug Contraindication: N/A - Med Ordered
[2020-12-01 13:15] LABS: ~Lactic Acid-LAB USE ONLY 1.5 mmol/L (0.5-2.0)
[2020-12-01] MEDS: Folic Acid 1 MG in 0.9 % Sodium Chloride 50 ML 100.4 MG IV (13:29)
--- NOTE | 2020-12-01 14:10 | PC.NURSE ---
Report called to [facility] RN
[2020-12-01 14:47] VITALS: BP 117/63; PULSE 104
[2020-12-01 15:16] VITALS: BP 139/94; PULSE 123; RESP 19; TEMP 36.9
[2020-12-01] MEDS: Lactated Ringers 1,000 ML 80 ML IVCONT (17:19)
[2020-12-01 19:53] VITALS: BP 110/85; PULSE 65; RESP 18; TEMP 37.2
[2020-12-01] MEDS: Acetaminophen 325 MG TABLET 650 MG PO (21:43)
[2020-12-01] MEDS: 0.9 % Sodium Chloride Flush 3 ML SYRINGE IVFLUSH ×2 (21:44→23:54)
[2020-12-01] MEDS: vancomycin HCL 750 MG in 0.9 % Sodium Chloride 250 ML 265 MG IV (22:54)
[2020-12-01 23:26] VITALS: BP 113/61; PULSE 106; RESP 18; TEMP 37; O2SAT 94
[2020-12-02] VITALS (7 sets, daily range): BP systolic 118–175; BP diastolic 72–90; PULSE 69–109; RESP 18–20; TEMP 36–37.1; O2SAT 93–97; BMI 17.5
[2020-12-02] MEDS: LORazepam 0.5 MG TABLET PO (02:50)
[2020-12-02 06:35] LABS: Hematocrit 35.9 % (37-47); Hemoglobin 13.2 g/dl (12.0-16.0); Mean Corpuscular HGB Conc 36.8 g/dl (31.0-35.0); Mean Corpuscular Hemoglobin 33.1 pg (27.0-33.0); Mean Platelet Volume 10.6 fL (9.4-12.3); Platelet Count 311 X10*3/uL (160-400); Red Blood Count 3.99 X10*6/uL (4.20-5.50); Red Cell Distribution Width 13.3 % (11.0-16.0)
[2020-12-02 07:10] LABS: Alanine Aminotransferase 30 U/L (0-31); Albumin Level 2.6 g/dL (3.5-5.0); Alkaline Phosphatase 108 U/L (39-117); Anion Gap 12 (12-20); Aspartate Amino Transferase 36 U/L (5-31); Bilirubin Direct 0.6 mg/dL (0.0-0.5); Bilirubin Total 0.9 mg/dL (0.0-1.0); Blood Urea Nitrogen 28 mg/dL (9-16); Calcium 9.1 mg/dL (8.4-10.2); Carbon Dioxide 26 mmol/L (22-29); Chloride 97 mmol/L (96-108); Creatinine Clr Calc Pharmacy 48.8; Estimated Glomerular Filt Rate > 60; Glucose Fasting 86 mg/dL (60-99); Magnesium 1.7 mg/dL (1.6-2.6); Potassium 3.1 mmol/L (3.3-5.1); Sodium 132 mmol/L (135-145); Total Protein 4.7 g/dL (6.5-8.0)
[2020-12-02] MEDS: Enoxaparin Sodium 40 MG/0.4 ML SYRINGE SUBCUT (08:44)
[2020-12-02] MEDS: Losartan Potassium 50 MG TABLET 100 MG PO (08:44)
[2020-12-02] MEDS: Potassium Chloride ER 20 MEQ TAB.ER.PRT 40 MEQ PO (08:45)
[2020-12-02] MEDS: Magnesium Sulfate/H2O 2 GM/50 ML PIGGYBACK IV (08:45)
[2020-12-02] MEDS: 0.9 % Sodium Chloride Flush 3 ML SYRINGE IVFLUSH (08:57)
--- NOTE | 2020-12-02 10:05 | MHC.CM.PN ---
SPOKE WITH PTS SON LAW NARVAEZ WHO EXPLINS THAT PT HAD NO SERVCEIS PRIOR TO ADMISISON FAMILY IS UNCERTAIN TO WHAT HER DC NEEDS WILL BE STR VS HOME WITH SERVICES FAMILY IS AWRE THAT PHYSICAL THERAPY WOULD NEED TO RECOMMEND STR FOR INS TO PAY ..DC PLAN TBD
--- NOTE | 2020-12-02 10:38 | HO.PM.IMPN ---
Subjective Subjective Date of Service: 12/02/20 Interval History: weak, confused Cardiovascular Cardiovascular: Reports no additional cardiovascular complaints Respiratory Respiratory: Reports no additional respiratory complaints Physical Exam Vital Signs: Vital Signs: Last Vital Signs Temp 98 F 12/02/20 06:59 Pulse 88 12/02/20 08:44 Resp 20 12/02/20 06:59 BP 148/74 H 12/02/20 08:44 Pulse Ox 93 12/02/20 06:59 Body Mass Index 17.5 General: AO X 2, no acute distress, frail appearing Resp: diminished CVS: S1,S2,RRR GI: soft, non tender, non distended Neuro: motor grossly weak Psych: impaired insight Objective Data Current Medications Generic Name Dose Route Start Last Admin Trade Name Freq PRN Reason Stop Dose Admin Acetaminophen 650 mg 12/01/20 12:46 12/01/20 21:43 Acetaminophen 325 Mg Tablet PO 650 mg Q6H PRN Administration Pain, Mild (Pain Scale 1-3) Enoxaparin Sodium 40 mg 12/02/20 09:00 12/02/20 08:44 Enoxaparin Sodium 40 Mg/0.4 Ml Syringe SUBCUT 40 mg DAILY NAI Administration Lactated Ringer's 1,000 mls @ 80 mls/hr 12/01/20 12:45 12/02/20 01:31 Lr IVCONT Not Given .[id number] NAI Ceftriaxone Sodium 1 gm/ 50 mls @ 100 mls/hr 12/02/20 11:00 Sodium Chloride IV Q24H NAI Vancomycin HCl 750 mg/ Sodium 265 mls @ 265 mls/hr 12/01/20 23:00 12/02/20 00:33 Chloride IV Infused Q24H NAI Infusion Lorazepam 0.5 mg 12/01/20 12:44 12/02/20 02:50 Lorazepam 0.5 Mg Tablet PO 0.5 mg BID PRN Administration anxiety Losartan Potassium 100 mg 12/02/20 09:00 12/02/20 08:44 Losartan Potassium 50 Mg Tablet PO 100 mg DAILY NAI Administration Protocol Pharmacy Consult 1 each 12/01/20 09:38 Consult Rx Perform Med Rec MISCELLANE ONCE PRN Consult order Pharmacy Consult 1 each 12/01/20 22:24 Consult Rx Vancomycin Dosing MISCELLANE DAILY PRN Consult order Potassium Chloride 10 meq 12/02/20 09:00 Potassium Chloride Er 10 Meq Capsule.Er PO DAILY NAI Sodium Chloride 3 ml 12/01/20 16:00 12/02/20 08:57 0.9 % Sodium Chloride Flush 3 Ml Syringe IVFLUSH 3 ml QSHIFT NAI Administration Labs CBC & Chem 7: 12/02/20 05:11 12/02/20 05:11 Labs: Laboratory Results - last 24 hr 12/01/20 12/01/20 12/01/20 10:01 10:01 10:01 MCV MCH MCHC RDW Plt Count MPV Absolute Nucleated RBC Nucleated RBC % (auto) Neutrophils % (Manual) 86 H Band Neutrophils % 10 H Lymphocytes % (Manual) 1 L Monocytes % (Manual) 3 Abs Neuts (Manual) 32.7 H Lymphocytes # (Manual) 0.3 L Monocytes # (Manual) 1.0 Toxic Vacuolation PRESENT Platelet Estimate NORMAL Large Platelets PRESENT Plt Morphology Comment NOTED RBC Morphology NOTED Ransom Cells 2+ (3-5) Anion Gap 17 Estim Creat Clear Calc 36.3 Estimated GFR 57 Random Glucose 102 Fasting Glucose Lactic Acid 2.4 H* Lactic Acid Fup @ 2Hr Calcium 9.8 Magnesium 1.8 Total Bilirubin 1.5 H Direct Bilirubin 0.7 H AST 42 H D ALT 28 Alkaline Phosphatase 115 D Total Creatine Kinase 872 H Troponin I High Sens Total Protein 5.5 L Albumin 3.1 L D Lipase 4 L COVID-19 (RANDY) COVID-Skycatch 12/01/20 12/01/20 12/01/20 10:01 11:00 12:46 MCV MCH MCHC RDW Plt Count MPV Absolute Nucleated RBC Nucleated RBC % (auto) Neutrophils % (Manual) Band Neutrophils % Lymphocytes % (Manual) Monocytes % (Manual) Abs Neuts (Manual) Lymphocytes # (Manual) Monocytes # (Manual) Toxic Vacuolation Platelet Estimate Large Platelets Plt Morphology Comment RBC Morphology Ransom Cells Anion Gap Estim Creat Clear Calc Estimated GFR Random Glucose Fasting Glucose Lactic Acid Lactic Acid Fup @ 2Hr 1.5 Calcium Magnesium Total Bilirubin Direct Bilirubin AST ALT Alkaline Phosphatase Total Creatine Kinase Troponin I High Sens 38.8 H* Total Protein Albumin Lipase COVID-19 (RANDY) Negative COVID-Email Data Source Com See Note 12/02/20 12/02/20 05:11 05:11 MCV 90.0 MCH 33.1 H MCHC 36.8 H RDW 13.3 Plt Count 311 MPV 10.6 Absolute Nucleated RBC 0.000 Nucleated RBC % (auto) 0.0 Neutrophils % (Manual) Band Neutrophils % Lymphocytes % (Manual) Monocytes % (Manual) Abs Neuts (Manual) Lymphocytes # (Manual) Monocytes # (Manual) Toxic Vacuolation Platelet Estimate Large Platelets Plt Morphology Comment RBC Morphology Angel Cells Anion Gap 12 Estim Creat Clear Calc 48.8 Estimated GFR > 60 Random Glucose Fasting Glucose 86 Lactic Acid Lactic Acid Fup @ 2Hr Calcium 9.1 D Magnesium 1.7 Total Bilirubin 0.9 Direct Bilirubin 0.6 H AST 36 H ALT 30 Alkaline Phosphatase 108 Total Creatine Kinase Troponin I High Sens Total Protein 4.7 L Albumin 2.6 L Lipase COVID-19 (RANDY) COVID-19 Clin Com Microbiology Microbiology Results: Microbiology 12/01/20 10:07 Blood Culture - Preliminary Blood - Venous Staphylococcus species 12/01/20 10:07 Blood Culture - Preliminary Blood - Venous Staphylococcus species Assessment and Plan (1) Acute hyponatremia: Status: Acute Assessment and Plan: 85F presented with weakness and falls, found to have hypokalemia, hyponatremia, leukocytosis weakness and falls failure to thrive, possible due to alcohol dependence vs elecrolyte abnormalities vs infection PT eval appreciated, plan for STR at SNF when medically stable hypokalemia continue to replace and monitor hold hctz hyponatremia multifactorial, holding hctz IV fluids monitor improved from 129 to 132 leukocytosis some concentration, ?infection (staph bacteremia) staph species 2/2 in blood could be real given 2/2 and leukocytosis continue vanc, follow up species, echo, repeat alcohol dependence no evidence of withdrawal at this time, monitor ciwa htn losartan Quality Stroke Does the patient have a stroke diagnosis?: No VTE Prior VTE?: No VTE Risk Level:: Medical - moderate - high VTE Device Contraindication: Treatment Not Indicated VTE Drug Contraindication: N/A - Med Ordered
--- NOTE | 2020-12-02 11:00 | CA_ITS ---
Transthoracic Echocardiogram Patient (Last, First, Middle): Rachel Sutton, Gender: Female Date of : 1935 Age: 85 Procedure Date: 12/02/2020 Procedure Type: Transthoracic Echocardiogram [place] [facility] [place]: 170.18 cm Weight: 50.8 kg BSA: 1.58 m2 Heart Rate: bpm BP: 120 / 72 mmHg [employer]ver: Referring MD: Daniel Coleman MD Symptoms: staph bacteremia, ?vegetations Study Quality: Technically Difficult due to position ECG Rhythm: Atrial Fibrillation Conclusions: - The left ventricular systolic function is mild to moderately decreased. The visually estimated ejection fraction is between 35-40%. - RV function in limited views appears normal. - There is mild thickening of the aortic valve. - There is moderate tricuspid valve regurgitation. Significantly elevated right atrial pressure. Severe pulmonary hypertension is present. - There is a trivial loculated pericardial effusion overlying the left ventricle. Findings Left Ventricle Normal left ventricular cavity size. There is normal left ventricular wall thickness. The left ventricular systolic function is mild to moderately decreased. The visually estimated ejection fraction is between 35-40%. There is mild global hypokinesis. Abnormal diastolic function is noted. Spectral Doppler is indicative of an impaired relaxation filling pattern. E/E prime ratio is between 8 and 15 consistent with indeterminate filling pressures. Right Ventricle RV function in limited views appears normal. Atria The left atrium is normal in size. Aortic Valve There is a normal trileaflet aortic valve. There is mild thickening of the aortic valve. There is no aortic valve stenosis. There is no aortic valve regurgitation. Mitral Valve Normal mitral valve structure and function. There is mild mitral valve regurgitation. There is no mitral valve stenosis. Pulmonic Valve The pulmonic valve is likely normal. Tricuspid Valve Normal tricuspid valve structure. There is moderate tricuspid valve regurgitation. Significantly elevated right atrial pressure. Severe pulmonary hypertension is present. Great Vessels All visible segments of the aorta are normal in size. The visualized portions of the pulmonary artery and branches are normal. Venous The inferior vena cava is dilated and does not collapse with inspiration. Pericardium/Pleural There is a trivial loculated pericardial effusion overlying the left ventricle. Prior Study Comparison No prior study available for comparison. Measurements 2D Linear Measurements IVSd: 0.88 0.6-0.9/0.6-1.0 cm LVIDd: 3.67 3.9-5.3/4.2-5.9 cm LVIDd Index: 2.32 2.4-3.2/2.2-3.1 cm/m2 LVIDs: 2.56 2.0-3.6 cm LVPWd: 0.92 0.7-1.1 cm Ao Root: 3.20 2.1-3.5 cm LA Diam: 1.70 2.7-3.8/3.0-4.0 cm LAIDs Index: 1.08 1.5-2.3 cm/m2 LV Mass: 118.25 67-162/88-224 g LV Mass Index: 74.84 43-95/49-115 g/m2 LVOT Diam: 2.00 3.0+(-)1.3 cm Mitral Valve MV Pk E: 0.75 MV Decel Time: 123.00 E'Lateral: 6.64 E'Medial: 6.85 E/E' Med: 10.90 E/E' Lat: 11.20 PHT: 36.00 MVA PHT: 6.11 Decel [place]: 6.08 Aortic Valve AoV Pk [place]: 0.99 AoV Mn [place]: 0.59 AoV VTI: 0.16 AoV Pk Grad: 4.00 Aov Mn Grad: 2.00 VIPUL Cont.VTI: 1.61 LVOT LVOT Pk [place]: 0.53 LVOT Mn [place]: 0.35 LVOT VTI: 0.08 LVOT Pk Grad: 1.00 LVOT Mn Grad: 1.00 LVOT Diam: 2.00 LVOT Area: 3.14 Diastolic Function MV Pk E: 0.75 E'Medial: 6.85 E/E' Med: 10.90 E' Laterial: 6.64 E/E' Lat: 11.20 Tricuspid Valve TR Pk [place]: 3.02 TR Pk Grad: 36.00 RVSP: 61.00 Great Vessels Aorta Ao Root-2D: 3.20 2.0-3.7 cm Ao Asc: 3.30 2.1-3.4 cm Pulmonary Valve PV Pk [place]: 0.93 Peak PV Grad: 3.00 Updated in Other Vendor System with Status of Final Mandeep Anaya MD electronically signed on 12/02/2020 8:32:25 PM with status of Final
[2020-12-02] MEDS: cefTRIAXone sodium 1 GM in 0.9 % Sodium Chloride 50 ML IV (11:32)
[2020-12-02] MEDS: Lactated Ringers 1,000 ML 80 ML IVCONT (12:58)
--- NOTE | 2020-12-02 16:07 | P.CNID_ITS ---
History of Present Illness Data of Consult Service Date: 12/02/20 Requesting physician: Daniel Coleman Primary Care Provider: Ar Lundberg MD HPI Reason for consult: staph bacteremia She presents with weakness and failure to thrive She has had subjective chills. She has no chest pain or rash PMFSH Past Medical History Medical History (Updated 12/04/20 @ 14:23 by Dave Jolley MD) Alcohol use Anxiety Back pain Benign essential hypertension Dermatitis, eczematoid Hyponatremia Impaired fasting glucose Polycythemia Pure hypercholesterolemia Smoker Staphylococcus aureus bacteremia Family History Family History Other Family history non-contributory Family history: reviewed and not pertinent Surgical History Surgical History History of cataract extraction with lens replacement Status post total abdominal hysterectomy and bilateral salpingo-oophorectomy (RAMON-BSO) Social History Social History Household Members: None Housing: House Do you presently have visiting nurse or other home services: No Alcohol intake: current Patient Tobacco Use Status: Current everyday Tobacco user Tobacco use type: Cigarette Cigarettes Per Day: 8 Smoked in Last 30 Days: Yes e-Cigarette/Vaping Use: Never Used Patient Interested in Nicotine Replacement: No Second Hand Smoke Exposure: No Use of substances other than those prescribed or required for medical reasons: No Currently Displaying Signs/Symptoms of Drug Intoxication Withdrawal: No Have you been hit, kicked, punched, or otherwise hurt by someone within the past year? If so, by whom?: No Do you feel safe in your current relationship?: No Current Relationship Is there a partner from a previous relationship who is making you feel unsafe now?: No Are you made to feel afraid or neglected: No [employer] Healthcare Practices: Christianity Advance Directives: Yes Advance Directives Information Provided: Yes Advance Directives on File: Yes Advance Directives Date on File: 12/01/20 Do you have thoughts of harming others: None Do you have a plan to hurt others: No Plan Recently lost weight without trying: Yes How much weight loss: Unsure Eating poorly because of decreased appetite: Yes Nutrition screen score: 5 Nutrition Risks: Poor intake 0-25% >4 days Patient : No : No service: No Meds Allergies Allergy/AdvReac Type Severity Reaction Status Date / Time No Known Allergies Allergy Verified 07/09/20 08:52 [No Known Allergies*] Active Medications: Current Medications Generic Name Dose Route Start Last Admin Trade Name Freq PRN Reason Stop Dose Admin Acetaminophen 650 mg 12/01/20 12:46 12/01/20 21:43 Acetaminophen 325 Mg Tablet PO 650 mg Q6H PRN Administration Pain, Mild (Pain Scale 1-3) Enoxaparin Sodium 40 mg 12/02/20 09:00 12/02/20 08:44 Enoxaparin Sodium 40 Mg/0.4 Ml Syringe SUBCUT 40 mg DAILY NAI Administration Lactated Ringer's 1,000 mls @ 80 mls/hr 12/01/20 12:45 12/02/20 12:58 Lr IVCONT 80 mls/hr .[id number] NAI Administration Ceftriaxone Sodium 1 gm/ 50 mls @ 100 mls/hr 12/02/20 11:00 12/02/20 12:41 Sodium Chloride IV Infused Q24H NAI Infusion Vancomycin HCl 750 mg/ Sodium 265 mls @ 265 mls/hr 12/01/20 23:00 12/02/20 00:33 Chloride IV Infused Q24H NAI Infusion Lorazepam 0.5 mg 12/01/20 12:44 12/02/20 02:50 Lorazepam 0.5 Mg Tablet PO 0.5 mg BID PRN Administration anxiety Losartan Potassium 100 mg 12/02/20 09:00 12/02/20 08:44 Losartan Potassium 50 Mg Tablet PO 100 mg DAILY NAI Administration Protocol Pharmacy Consult 1 each 12/01/20 09:38 Consult Rx Perform Med Rec MISCELLANE ONCE PRN Consult order Pharmacy Consult 1 each 12/01/20 22:24 Consult Rx Vancomycin Dosing MISCELLANE DAILY PRN Consult order Potassium Chloride 10 meq 12/02/20 09:00 12/02/20 10:46 Potassium Chloride Er 10 Meq Capsule.Er PO 10 meq DAILY NAI Administration Sodium Chloride 3 ml 12/01/20 16:00 12/02/20 08:57 0.9 % Sodium Chloride Flush 3 Ml Syringe IVFLUSH 3 ml QSHIFT NAI Administration Physical Exam Vital Signs: Vital Signs: Last Vital Signs Temp 97.4 F 12/02/20 15:48 Pulse 109 H 12/02/20 15:48 Resp 18 12/02/20 15:48 BP 138/82 12/02/20 15:48 Pulse Ox 95 12/02/20 15:48 Body Mass Index 17.5 Const: General: cooperative HENMT: Head: Yes normal to inspection Mouth: Normal oral and palatal mucosa present Resp: Effort & Inspection: normal respiratory effort Cardio: Rate: regular rate Rhythm: regular rhythm GI: Palpation (GI): Soft to palpation and nontender Skin: General skin exam: no rashes or lesions noted Extrem: General: Yes normal to inspection Results Labs CBC & Chem 7: 12/03/20 05:10 12/03/20 05:10 Labs: Short CBC 12/02/20 Range/Units 05:11 WBC 25.0 H (4.8-10.8) X10*3/uL Hgb 13.2 (12.0-16.0) g/dl Hct 35.9 L (37-47) % Plt Count 311 (160-400) X10*3/uL BMP 12/02/20 05:11 Sodium 132 L Potassium 3.1 L Chloride 97 Carbon Dioxide 26 BUN 28 H Creatinine 0.70 Calcium 9.1 D Liver Function 12/02/20 Range/Units 05:11 Total Bilirubin 0.9 (0.0-1.0) mg/dL Direct Bilirubin 0.6 H (0.0-0.5) mg/dL AST 36 H (5-31) U/L ALT 30 (0-31) U/L Alkaline Phosphatase 108 (39-117) U/L Albumin 2.6 L (3.5-5.0) g/dL Microbiology Microbiology Results: Microbiology 12/01/20 22:41 Blood - Venous Blood Culture - Preliminary Prelim: GPC Gram Stain only 12/01/20 22:35 Blood - Venous Blood Culture - Preliminary Prelim: GPC Gram Stain only 12/01/20 10:07 Blood - Venous Blood Culture - Preliminary Staphylococcus species 12/01/20 10:07 Blood - Venous Blood Culture - Preliminary Staphylococcus species Assessment and Plan (1) Staphylococcus aureus bacteremia: Status: Acute There is concern over bacteremia caused by breaks in skin (dermatitis) She has no obvious signs of endocarditis or sources Continue Vancomycin alone Await final cultures TTE
[2020-12-03] MEDS: vancomycin HCL 750 MG in 0.9 % Sodium Chloride 250 ML 265 MG IV ×2 (01:39→23:32)
[2020-12-03 03:09] VITALS: BP 171/100; PULSE 68; RESP 18; TEMP 36.6; O2SAT 97
[2020-12-03 06:20] LABS: Hematocrit 35.7 % (37-47); Hemoglobin 12.9 g/dl (12.0-16.0); Mean Corpuscular HGB Conc 36.1 g/dl (31.0-35.0); Mean Corpuscular Hemoglobin 32.7 pg (27.0-33.0); Mean Corpuscular Volume 90.6 fL (80-98); Mean Platelet Volume 10.6 fL (9.4-12.3); Platelet Count 335 X10*3/uL (160-400); Red Blood Count 3.94 X10*6/uL (4.20-5.50); Red Cell Distribution Width 13.6 % (11.0-16.0); White Blood Count 21.8 X10*3/uL (4.8-10.8)
--- NOTE | 2020-12-03 06:36 | PM.EVENT ---
Event Note Date of Service: 12/03/20 Event Note: Fall: Around 6:30 a.m. on 12/03/2020 are informed the patient on the side of her bed; noted to have small lacerations on the left side of her face and right index finger. I went in to examine the patient. Patient is confused. Neck is supple. Nonfocal examination. Has small laceration on the left side of the face and had dressing placed by RN. Also noted skin tear on right index finger medial side. Dressing placed. Spoke to the RN for strict fall precautions. Camera was not working due to power fluctuations per RN. Will obtain CT head and CT C-spine
[2020-12-03 06:50] LABS: Anion Gap 14 (12-20); Blood Urea Nitrogen 24 mg/dL (9-16); Calcium 9.1 mg/dL (8.4-10.2); Carbon Dioxide 24 mmol/L (22-29); Chloride 102 mmol/L (96-108); Creatinine Clr Calc Pharmacy 54.2; Estimated Glomerular Filt Rate > 60; Glucose Fasting 96 mg/dL (60-99); Sodium 136 mmol/L (135-145)
[2020-12-03 07:03] VITALS: BP 147/87; PULSE 71; RESP 18; TEMP 36.8; O2SAT 94
--- NOTE | 2020-12-03 07:30 | PC.NURSE ---
At 0630 Patient was found kneeling in front of her recliner. Patient had skin tear to Right 2nd digit and Left lower chin. At time of fall there was a power surge and the camera in the room was not working. Bed alarm had been reset throughout the night, and would not trigger possibly related to patient's low weight.
[2020-12-03 07:56] VITALS: BP 147/87; PULSE 71
[2020-12-03] MEDS: Acetaminophen 325 MG TABLET 650 MG PO ×2 (07:56→18:00)
[2020-12-03] MEDS: Losartan Potassium 50 MG TABLET 100 MG PO (07:56)
--- NOTE | 2020-12-03 11:18 | P.PNIM_ITS ---
Subjective Subjective Date of Service: 12/03/20 Interval History: F/u on bacteremia, confusion/ weakness Review of Systems Review of Systems: Yes Unobtainable due to mental status Physical Exam Vital Signs: Vital Signs: Last Vital Signs Temp 98.3 F 12/03/20 07:03 Pulse 71 12/03/20 07:56 Resp 18 12/03/20 07:03 BP 147/87 H 12/03/20 07:56 Pulse Ox 94 12/03/20 07:03 Body Mass Index 17.5 General: confused Resp: CTA bilateral CVS: S1,S2,RRR GI: +BS, NT, no distention Skin: No rash Neuro: motor grossly intact Psych: appropriate affect Objective Data Current Medications Generic Name Dose Route Start Last Admin Trade Name Freq PRN Reason Stop Dose Admin Acetaminophen 650 mg 12/01/20 12:46 12/03/20 07:56 Acetaminophen 325 Mg Tablet PO 650 mg Q6H PRN Administration Pain, Mild (Pain Scale 1-3) Enoxaparin Sodium 40 mg 12/02/20 09:00 12/02/20 08:44 Enoxaparin Sodium 40 Mg/0.4 Ml Syringe SUBCUT 40 mg DAILY NAI Administration Lactated Ringer's 1,000 mls @ 80 mls/hr 12/01/20 12:45 12/03/20 08:11 Lr IVCONT Infused .[id number] NAI Infusion Vancomycin HCl 750 mg/ Sodium 265 mls @ 265 mls/hr 12/01/20 23:00 12/03/20 03:10 Chloride IV Infused Q24H NAI Infusion Lorazepam 0.5 mg 12/01/20 12:44 12/02/20 02:50 Lorazepam 0.5 Mg Tablet PO 0.5 mg BID PRN Administration anxiety Losartan Potassium 100 mg 12/02/20 09:00 12/03/20 07:56 Losartan Potassium 50 Mg Tablet PO 100 mg DAILY NAI Administration Protocol Pharmacy Consult 1 each 12/01/20 09:38 Consult Rx Perform Med Rec MISCELLANE ONCE PRN Consult order Pharmacy Consult 1 each 12/01/20 22:24 Consult Rx Vancomycin Dosing MISCELLANE DAILY PRN Consult order Potassium Chloride 10 meq 12/02/20 09:00 12/03/20 07:56 Potassium Chloride Er 10 Meq Capsule.Er PO 10 meq DAILY NAI Administration Sodium Chloride 3 ml 12/01/20 16:00 12/03/20 08:11 0.9 % Sodium Chloride Flush 3 Ml Syringe IVFLUSH Not Given QSHIFT NAI Labs CBC & Chem 7: 12/03/20 05:10 12/03/20 05:10 Labs: Laboratory Results - last 24 hr 12/03/20 12/03/20 05:10 05:10 MCV 90.6 MCH 32.7 MCHC 36.1 H RDW 13.6 Plt Count 335 MPV 10.6 Absolute Nucleated RBC 0.000 Nucleated RBC % (auto) 0.0 Anion Gap 14 Estim Creat Clear Calc 54.2 Estimated GFR > 60 Fasting Glucose 96 Calcium 9.1 Total Creatine Kinase 129 D Microbiology Microbiology Results: Microbiology 12/01/20 22:41 Blood Culture - Preliminary Blood - Venous Staphylococcus species 12/01/20 22:35 Blood Culture - Preliminary Blood - Venous Staphylococcus species 12/01/20 10:07 Blood Culture - Final Blood - Venous Staphylococcus aureus 12/01/20 10:07 Blood Culture - Final Blood - Venous Staphylococcus aureus Assessment and Plan (1) Acute hyponatremia: Status: Acute Assessment and Plan: 85/ F HTN who presented with weakness and falls, found to have hypokalemia, hyponatremia, leukocytosis and now staph Aureus Bacteremia Staph Aurius bacteremia--source unclear, but most likely from skin break -Vancomycin -Echo 12/02 no vegetation or endocarditis -ID following, will liekly need skilled nursing Abx weakness and falls failure to thrive, possible due to alcohol dependence vs elecrolyte abnormalities vs infection, unfortunately had a fall this morning, CT of head, and neck ok, she need to close monitoring with camera or in persn PT eval appreciated, plan for STR at SNF when medically stable hypokalemia--corrected Hold HCTZ hyponatremia multifactorial, holding hctz IV fluids monitor improved from 129 to 136 Metabolic encephalopathy d/t bactereemia, electrolytes abnormalities leukocytosis--likely from bacteremia and trending down alcohol dependence no evidence of withdrawal at this time, monitor ciwa HTN--continue Losartan Quality Stroke Does the patient have a stroke diagnosis?: No VTE Prior VTE?: No VTE Risk Level:: Medical - moderate - high VTE Device Contraindication: Treatment Not Indicated VTE Drug Contraindication: N/A - Med Ordered
[2020-12-03 11:36] VITALS: BP 140/97; PULSE 110; RESP 20; TEMP 36.2; O2SAT 95
[2020-12-03] MEDS: Enoxaparin Sodium 40 MG/0.4 ML SYRINGE SUBCUT (11:49)
[2020-12-03] MEDS: Lactated Ringers 1,000 ML 80 ML IVCONT ×2 (11:52→23:32)
[2020-12-03 15:11] VITALS: BP 145/89; PULSE 104; RESP 18; TEMP 36.6; O2SAT 96
[2020-12-03 16:28] LABS: Glucose, Whole Blood 120 mg/dL (60-115)
[2020-12-03 20:00] VITALS: BP 112/68; PULSE 110; RESP 16; TEMP 36.9; O2SAT 95
[2020-12-04] VITALS: BP 102/64; PULSE 92; RESP 12; TEMP 36.6; O2SAT 96
[2020-12-04 08:00] VITALS: BP 125/78; PULSE 78; RESP 18; TEMP 36.2; O2SAT 95
[2020-12-04 08:50] VITALS: BP 125/78; PULSE 78
[2020-12-04] MEDS: Losartan Potassium 50 MG TABLET 100 MG PO (08:50)
--- NOTE | 2020-12-04 09:06 | MHC.CM.PN ---
Per MD, Patient is expected to be here through the weekend (still growing Bacteria). PT is recommending STR and Patient/Daughter/HCP/Zoila at [phone](not home phone #) is in agreement with the plan.[facility] is first choice and also agreeable to [facility] referrals. CM will place referrals and continue to follow for dc planning.
[2020-12-04 09:37] LABS: Vancomycin Random 11.9 mcg/mL (15-20)
[2020-12-04] MEDS: vancomycin HCL 1,000 MG in 0.9 % Sodium Chloride 250 ML 265 MG IV (10:47)
[2020-12-04 11:35] VITALS: BP 140/86; PULSE 80; RESP 18; TEMP 36; O2SAT 92
[2020-12-04] MEDS: Lactated Ringers 1,000 ML 80 ML IVCONT (12:21)
[2020-12-04] MEDS: Enoxaparin Sodium 40 MG/0.4 ML SYRINGE SUBCUT (12:21)
--- NOTE | 2020-12-04 12:31 | MHC.CLN ---
F/U HAS MULTIPLE SKIN TEARS AND BRUISES. NO PRESSURE INJURIES. EATING ABOUT 50-100% AT MEALS. CONTINUE REGULAR DIET WITH ENSURE 240 ML BID (700 KCAL, 40 G/PROTEIN.
--- NOTE | 2020-12-04 14:03 | PM.IDPN ---
Subjective Subjective Date of Service: 12/04/20 Critical Care Time (minutes): 15 Comment: she describes persistent low back pain and no weakness Objective Data Labs CBC & Chem 7: 12/03/20 05:10 12/03/20 05:10 Labs: Laboratory Results - last 24 hr 12/03/20 12/04/20 16:20 08:57 POC Glucose 120 H Random Vancomycin 11.9 L Microbiology Microbiology Results: Microbiology 12/03/20 05:01 Blood - Venous Blood Culture - Preliminary Prelim: GPC Gram Stain only 12/01/20 22:41 Blood - Venous Blood Culture - Final Staphylococcus aureus 12/01/20 22:35 Blood - Venous Blood Culture - Final Staphylococcus aureus 12/03/20 05:10 Blood - Venous Blood Culture - Preliminary Prelim: GPC Gram Stain only 12/01/20 10:07 Blood - Venous Blood Culture - Final Staphylococcus aureus 12/01/20 10:07 Blood - Venous Blood Culture - Final Staphylococcus aureus Physical Exam Vital Signs: Vital Signs: Last Vital Signs Temp 96.8 F 12/04/20 11:35 Pulse 80 12/04/20 11:35 Resp 18 12/04/20 11:35 BP 140/86 H 12/04/20 11:35 Pulse Ox 92 12/04/20 11:35 Body Mass Index 17.5 Const: General: cooperative HENMT: Head: Yes normal to inspection Mouth: Normal oral and palatal mucosa present Resp: Effort & Inspection: normal respiratory effort Auscultation: clear to auscultation bilaterally Cardio: Rate: regular rate Rhythm: regular rhythm GI: Palpation (GI): Soft to palpation and nontender Back/Spine/Pelvis: Other: lower lumbar back pain Assessment and Plan Assessment and plan (1) Staphylococcus aureus bacteremia: Problem details: She has discomfort lower back There is concern over any diskiitis/osteomyelitis Status: Acute Assessment and Plan: Would check MRI LS spine Since MSSA change to IV Kefzol She needs 4-6 weeks treatment IV (2) Back pain: Status: Acute Time Spent With Patient Time: Total time spent is greater than 50% in coordination of care (as documented) at patient's floor/unit and/or counseling patient: Time with patient: 15 - 24 minutes
--- NOTE | 2020-12-04 14:14 | HO.PM.IMPN ---
Subjective Subjective Date of Service: 12/04/20 Interval History: the patient was seen and evaluated this morning Laying in bed, feels tired overall but complaining of back pain Denies any fever, chills or shortness of breath No reported other overnight events. Systemic review: No fever, chills but complained of generalized weakness No chest pain, palpitation No shortness of breath or coughing No abdominal pain, nausea or vomiting No urinary symptoms No any rash or wounds Physical Exam Vital Signs: Vital Signs: Last Vital Signs Temp 96.8 F 12/04/20 11:35 Pulse 80 12/04/20 11:35 Resp 18 12/04/20 11:35 BP 140/86 H 12/04/20 11:35 Pulse Ox 92 12/04/20 11:35 Body Mass Index 17.5 Const: Other: Constitutional : Alert, oriented, not in distress but looks weak Neck : Normal inspection, Supple Cardiovascular : RRR, S1 S2, trace lower extremity edema Respiratory : Good bilateral air entry, no crackles, wheezes or rhonchi Gastrointestinal: soft, lax, Normal bowel sounds, Non tender Skin : Warm, Dry, multiple bruises Neurological : Alert & oriented x3, No focal deficit Objective Data Current Medications Generic Name Dose Route Start Last Admin Trade Name Freq PRN Reason Stop Dose Admin Acetaminophen 650 mg 12/01/20 12:46 12/03/20 18:00 Acetaminophen 325 Mg Tablet PO 650 mg Q6H PRN Administration Pain, Mild (Pain Scale 1-3) Enoxaparin Sodium 40 mg 12/03/20 12:00 12/04/20 12:21 Enoxaparin Sodium 40 Mg/0.4 Ml Syringe SUBCUT 40 mg DAILY@1200 NAI Administration Vancomycin HCl 1,000 mg/ 270 mls @ 265 mls/hr 12/04/20 10:00 12/04/20 12:04 Sodium Chloride IV Infused Q24H NAI Infusion Cefazolin Sodium 2 gm/ Sodium 50 mls @ 100 mls/hr 12/04/20 12:00 12/04/20 12:46 Chloride IV Infused Q8H NAI Infusion Lorazepam 0.5 mg 12/01/20 12:44 12/02/20 02:50 Lorazepam 0.5 Mg Tablet PO 0.5 mg BID PRN Administration anxiety Losartan Potassium 100 mg 12/02/20 09:00 12/04/20 08:50 Losartan Potassium 50 Mg Tablet PO 100 mg DAILY NAI Administration Protocol Pharmacy Consult 1 each 12/01/20 09:38 Consult Rx Perform Med Rec MISCELLANE ONCE PRN Consult order Pharmacy Consult 1 each 12/01/20 22:24 Consult Rx Vancomycin Dosing MISCELLANE DAILY PRN Consult order Potassium Chloride 10 meq 12/02/20 09:00 12/04/20 08:50 Potassium Chloride Er 10 Meq Capsule.Er PO 10 meq DAILY NAI Administration Sodium Chloride 3 ml 12/01/20 16:00 12/04/20 08:47 0.9 % Sodium Chloride Flush 3 Ml Syringe IVFLUSH Not Given QSHIFT NAI Labs CBC & Chem 7: 12/03/20 05:10 12/03/20 05:10 Labs: Laboratory Results - last 24 hr 12/03/20 12/04/20 16:20 08:57 POC Glucose 120 H Random Vancomycin 11.9 L Microbiology Microbiology Results: Microbiology 12/03/20 05:01 Blood Culture - Preliminary Blood - Venous Prelim: GPC Gram Stain only 12/01/20 22:41 Blood Culture - Final Blood - Venous Staphylococcus aureus 12/01/20 22:35 Blood Culture - Final Blood - Venous Staphylococcus aureus 12/03/20 05:10 Blood Culture - Preliminary Blood - Venous Prelim: GPC Gram Stain only Assessment and Plan (1) Staphylococcus aureus bacteremia: Status: Acute (2) Back pain: Status: Acute (3) Falls: Status: Acute (4) Physical deconditioning: Status: Acute Assessment and Plan: 85/ F HTN who presented with weakness and falls, found to have hypokalemia, hyponatremia, leukocytosis and now staph Aureus Bacteremia Staph Aurius bacteremia MSSA Repeated cultures are positive for the 2nd time To repeat 3rd blood cultures Discontinue Vancomycin Start cephazolin Echo 12/02 no vegetation or endocarditis To check MRI for the back to evaluate for possible diskitis Id input appreciated, will need long-term IV antibiotics Multiple falls 2/2 physical deconditioning failure to thrive, possible due to alcohol dependence vs elecrolyte abnormalities vs infection CT of head, and neck with no abnormalities PT eval appreciated, plan for STR at SNF when medically stable hypokalemia corrected Hold HCTZ hyponatremia Resolved Metabolic encephalopathy Improving d/t bactereemia, electrolytes abnormalities alcohol dependence no evidence of withdrawal at this time, monitor ciwa HTN continue Losartan Quality Stroke Does the patient have a stroke diagnosis?: No VTE Prior VTE?: No VTE Risk Level:: Medical - moderate - high VTE Device Contraindication: Treatment Not Indicated VTE Drug Contraindication: N/A - Med Ordered
[2020-12-04 16:00] VITALS: BP 123/80; PULSE 113; RESP 19; TEMP 36.6; O2SAT 94
[2020-12-04] MEDS: LORazepam 0.5 MG TABLET PO (16:01)
[2020-12-04] MEDS: 0.9 % Sodium Chloride Flush 3 ML SYRINGE IVFLUSH (16:02)
[2020-12-04] MEDS: QUEtiapine Fumarate 25 MG TABLET PO (17:55)
[2020-12-04 19:08] VITALS: BP 140/90; PULSE 110; RESP 18; TEMP 36.6; O2SAT 93
[2020-12-05] VITALS (9 sets, daily range): BP systolic 108–153; BP diastolic 74–90; PULSE 66–136; RESP 18–20; TEMP 35.7–36.9; O2SAT 93–96
[2020-12-05] MEDS: 0.9 % Sodium Chloride Flush 3 ML SYRINGE IVFLUSH ×3 (04:38→18:00)
[2020-12-05] MEDS: Losartan Potassium 50 MG TABLET 100 MG PO (08:50)
[2020-12-05] MEDS: Enoxaparin Sodium 40 MG/0.4 ML SYRINGE SUBCUT (12:22)
--- NOTE | 2020-12-05 14:07 | HO.PM.IMPN ---
Subjective Subjective Date of Service: 12/05/20 Interval History: the patient was seen and evaluated this morning Laying in bed, Still complaining of back pain Repeated blood culture growing Gram-positive cocci Could not tolerate MRI Denies any fever, chills or shortness of breath No reported other overnight events. Systemic review: No fever, chills but complained of generalized weakness No chest pain, palpitation No shortness of breath or coughing No abdominal pain, nausea or vomiting No urinary symptoms Complaining mainly of back pain No any rash or wounds Physical Exam Vital Signs: Vital Signs: Last Vital Signs Temp 98.4 F 12/05/20 11:20 Pulse 116 H 12/05/20 11:20 Resp 18 12/05/20 11:20 BP 140/90 H 12/05/20 11:20 Pulse Ox 94 12/05/20 11:20 Body Mass Index 17.5 Const: Other: Constitutional : Alert, oriented, not in distress but looks weak Neck : Normal inspection, Supple Cardiovascular : RRR, S1 S2, trace lower extremity edema Respiratory : Good bilateral air entry, no crackles, wheezes or rhonchi Gastrointestinal: soft, lax, Normal bowel sounds, Non tender Skin : Warm, Dry, multiple bruises Neurological : Alert & oriented to self and place No focal deficit Objective Data Current Medications Generic Name Dose Route Start Last Admin Trade Name Simone PRN Reason Stop Dose Admin Acetaminophen 650 mg 12/01/20 12:46 12/03/20 18:00 Acetaminophen 325 Mg Tablet PO 650 mg Q6H PRN Administration Pain, Mild (Pain Scale 1-3) Enoxaparin Sodium 40 mg 12/03/20 12:00 12/05/20 12:22 Enoxaparin Sodium 40 Mg/0.4 Ml Syringe SUBCUT 40 mg DAILY@1200 NAI Administration Cefazolin Sodium 2 gm/ Sodium 50 mls @ 100 mls/hr 12/04/20 12:00 12/05/20 13:56 Chloride IV Infused Q8H NAI Infusion Lorazepam 0.5 mg 12/01/20 12:44 12/04/20 16:01 Lorazepam 0.5 Mg Tablet PO 0.5 mg BID PRN Administration anxiety Losartan Potassium 100 mg 12/02/20 09:00 12/05/20 08:50 Losartan Potassium 50 Mg Tablet PO 100 mg DAILY NAI Administration Protocol Pharmacy Consult 1 each 12/01/20 09:38 Consult Rx Perform Med Rec MISCELLANE ONCE PRN Consult order Pharmacy Consult 1 each 12/01/20 22:24 Consult Rx Vancomycin Dosing MISCELLANE DAILY PRN Consult order Potassium Chloride 10 meq 12/02/20 09:00 12/05/20 08:50 Potassium Chloride Er 10 Meq Capsule.Er PO 10 meq DAILY NAI Administration Sodium Chloride 3 ml 12/01/20 16:00 12/05/20 08:51 0.9 % Sodium Chloride Flush 3 Ml Syringe IVFLUSH 3 ml QSHIFT NAI Administration Labs CBC & Chem 7: 12/03/20 05:10 12/03/20 05:10 Microbiology Microbiology Results: Microbiology 12/03/20 05:10 Blood Culture - Final Blood - Venous Staphylococcus aureus 12/03/20 05:01 Blood Culture - Final Blood - Venous Staphylococcus aureus 12/04/20 08:57 Blood Culture - Preliminary Blood - Venous Prelim: GPC Gram Stain only 12/04/20 08:57 Blood Culture - Preliminary Blood - Venous Prelim: GPC Gram Stain only Assessment and Plan (1) Physical deconditioning: Status: Acute (2) Back pain: Status: Acute (3) Staphylococcus aureus bacteremia: Status: Acute Assessment and Plan: 85/ F HTN who presented with weakness and falls, found to have hypokalemia, hyponatremia, leukocytosis and now staph Aureus Bacteremia Staph Aurius bacteremia MSSA Repeated cultures are positive for the 2nd time Hold repeated blood cultures are positive To repeat again tomorrow Continue cephazolin Echo 12/02 no vegetation or endocarditis Could not tolerate MRI for possible diskitis, consider other mood of imaging or long-term antibiotics Id input appreciated, will need long-term IV antibiotics Multiple falls 2/2 physical deconditioning failure to thrive, possible due to alcohol dependence vs elecrolyte abnormalities vs infection CT of head, and neck with no abnormalities PT eval appreciated, plan for STR at SNF when medically stable hypokalemia corrected Hold HCTZ hyponatremia Resolved Metabolic encephalopathy Improving d/t bactereemia, electrolytes abnormalities alcohol dependence no evidence of withdrawal at this time, monitor ciwa HTN continue Losartan Quality Stroke Does the patient have a stroke diagnosis?: No VTE Prior VTE?: No VTE Risk Level:: Medical - moderate - high VTE Device Contraindication: Treatment Not Indicated VTE Drug Contraindication: N/A - Med Ordered
[2020-12-05 16:17] LABS: Glucose Urine UA NEG (NEG); Leukocyte Esterase Urine NEG (NEG); Nitrite Urine NEG (NEG); Specific Gravity - Urine 1.015 (1.005-1.025); Urine Blood NEG (NEG); Urine Ketones NEG (NEG); Urine Protein NEG (NEG-TRACE)
[2020-12-05 16:18] LABS: Appearance Urine CLEAR; Color Urine YELLOW
[2020-12-05] MEDS: Acetaminophen 325 MG TABLET 650 MG PO ×2 (18:18→22:16)
[2020-12-05] MEDS: Metoprolol Tartrate 25 MG TABLET PO (18:19)
[2020-12-06] VITALS (7 sets, daily range): BP systolic 98–164; BP diastolic 65–96; PULSE 56–117; RESP 16–19; TEMP 36.1–36.6; O2SAT 93–96
[2020-12-06] MEDS: 0.9 % Sodium Chloride Flush 3 ML SYRINGE IVFLUSH ×4 (00:35→21:11)
[2020-12-06 07:22] LABS: Hematocrit 35.5 % (37-47); Hemoglobin 12.5 g/dl (12.0-16.0); Mean Corpuscular HGB Conc 35.2 g/dl (31.0-35.0); Mean Corpuscular Hemoglobin 32.6 pg (27.0-33.0); Mean Corpuscular Volume 92.7 fL (80-98); Mean Platelet Volume 11.1 fL (9.4-12.3); Platelet Count 332 X10*3/uL (160-400); Red Blood Count 3.83 X10*6/uL (4.20-5.50); White Blood Count 15.8 X10*3/uL (4.8-10.8)
[2020-12-06 08:09] LABS: Thyroid Stimulating Hormone 0.64 uIU/mL (0.32-4.0)
[2020-12-06 08:10] LABS: Anion Gap 12 (12-20); Blood Urea Nitrogen 17 mg/dL (9-16); Calcium 8.3 mg/dL (8.4-10.2); Carbon Dioxide 26 mmol/L (22-29); Chloride 103 mmol/L (96-108); Creatinine Clr Calc Pharmacy 55.1; Estimated Glomerular Filt Rate > 60; Glucose Random 78 mg/dL (60-115); Potassium 3.9 mmol/L (3.3-5.1); Sodium 137 mmol/L (135-145)
[2020-12-06] MEDS: Losartan Potassium 50 MG TABLET 100 MG PO (09:34)
[2020-12-06] MEDS: Acetaminophen 325 MG TABLET 650 MG PO ×2 (09:34→17:44)
--- NOTE | 2020-12-06 11:57 | P.PNIM_ITS ---
Subjective Subjective Date of Service: 12/06/20 Interval History: the patient was seen and evaluated this morning Laying in bed, Still complaining of back pain Denies any fever, chills or shortness of breath No reported other overnight events. Systemic review: No fever, chills but complained of generalized weakness No chest pain, palpitation No shortness of breath or coughing No abdominal pain, nausea or vomiting No urinary symptoms Complaining mainly of back pain Physical Exam Vital Signs: Vital Signs: Last Vital Signs Temp 97.9 F 12/06/20 10:54 Pulse 117 H 12/06/20 10:54 Resp 16 12/06/20 10:54 BP 98/65 12/06/20 10:54 Pulse Ox 93 12/06/20 10:54 Body Mass Index 17.5 Const: Other: Constitutional : Alert, oriented, not in distress but looks weak Neck : Normal inspection, Supple Cardiovascular : RRR, S1 S2, trace lower extremity edema Respiratory : Good bilateral air entry, no crackles, wheezes or rhonchi Gastrointestinal: soft, lax, Normal bowel sounds, Non tender Skin : Warm, Dry, multiple bruises Neurological : Alert & oriented to self and place No focal deficit Objective Data Current Medications Generic Name Dose Route Start Last Admin Trade Name Freq PRN Reason Stop Dose Admin Acetaminophen 650 mg 12/01/20 12:46 12/03/20 18:00 Acetaminophen 325 Mg Tablet PO 650 mg Q6H PRN Administration Pain, Mild (Pain Scale 1-3) Acetaminophen 650 mg 12/05/20 17:05 12/06/20 09:34 Acetaminophen 325 Mg Tablet PO 650 mg TID NAI Administration Enoxaparin Sodium 40 mg 12/03/20 12:00 12/05/20 12:22 Enoxaparin Sodium 40 Mg/0.4 Ml Syringe SUBCUT 40 mg DAILY@1200 NAI Administration Cefazolin Sodium 2 gm/ Sodium 50 mls @ 100 mls/hr 12/04/20 12:00 12/06/20 04:30 Chloride IV Infused Q8H NAI Infusion Lorazepam 0.5 mg 12/01/20 12:44 12/04/20 16:01 Lorazepam 0.5 Mg Tablet PO 0.5 mg BID PRN Administration anxiety Losartan Potassium 100 mg 12/02/20 09:00 12/06/20 09:34 Losartan Potassium 50 Mg Tablet PO 100 mg DAILY NAI Administration Protocol Pharmacy Consult 1 each 12/01/20 09:38 Consult Rx Perform Med Rec MISCELLANE ONCE PRN Consult order Pharmacy Consult 1 each 12/01/20 22:24 Consult Rx Vancomycin Dosing MISCELLANE DAILY PRN Consult order Potassium Chloride 10 meq 12/02/20 09:00 12/06/20 09:34 Potassium Chloride Er 10 Meq Capsule.Er PO 10 meq DAILY NAI Administration Sodium Chloride 3 ml 12/01/20 16:00 12/06/20 09:34 0.9 % Sodium Chloride Flush 3 Ml Syringe IVFLUSH 3 ml QSHIFT NAI Administration Labs CBC & Chem 7: 12/06/20 05:56 12/06/20 05:56 Labs: Laboratory Results - last 24 hr 12/05/20 12/06/20 12/06/20 15:50 05:56 05:56 MCV 92.7 MCH 32.6 MCHC 35.2 H RDW 14.0 Plt Count 332 MPV 11.1 Absolute Nucleated RBC 0.000 Nucleated RBC % (auto) 0.0 Anion Gap 12 Estim Creat Clear Calc 55.1 Estimated GFR > 60 Random Glucose 78 Calcium 8.3 L D TSH 0.64 Urine Color YELLOW Urine Appearance CLEAR Urine pH 6.0 Ur Specific [place] 1.015 Urine Protein NEG Urine Glucose (UA) NEG Urine Ketones NEG Urine Blood NEG Urine Nitrite NEG Ur Leukocyte Esterase NEG Microbiology Microbiology Results: Microbiology 12/04/20 08:57 Blood Culture - Final Blood - Venous Staphylococcus aureus 12/04/20 08:57 Blood Culture - Final Blood - Venous Staphylococcus aureus 12/03/20 05:10 Blood Culture - Final Blood - Venous Staphylococcus aureus 12/03/20 05:01 Blood Culture - Final Blood - Venous Staphylococcus aureus Assessment and Plan (1) Physical deconditioning: Status: Acute (2) Back pain: Status: Acute (3) Staphylococcus aureus bacteremia: Status: Acute Assessment and Plan: 85/ F HTN who presented with weakness and falls, found to have hypokalemia, hyponatremia, leukocytosis and now staph Aureus Bacteremia Staph Aurius bacteremia MSSA Repeated cultures are positive for the 3rd time repeate blood cultures pending Continue cephazolin Echo 12/02 no vegetation or endocarditis To do bone scan tomorrow Id input appreciated, will need long-term IV antibiotics Multiple falls 2/2 physical deconditioning failure to thrive, possible due to alcohol dependence vs elecrolyte abnormalities vs infection CT of head, and neck with no abnormalities PT eval appreciated, plan for STR at SNF when medically stable hypokalemia corrected Hold HCTZ hyponatremia Resolved Metabolic encephalopathy Improving d/t bactereemia, electrolytes abnormalities alcohol dependence no evidence of withdrawal at this time, monitor ciwa HTN continue Losartan Quality Stroke Does the patient have a stroke diagnosis?: No VTE Prior VTE?: No VTE Risk Level:: Medical - moderate - high VTE Device Contraindication: Treatment Not Indicated VTE Drug Contraindication: N/A - Med Ordered
[2020-12-06] MEDS: Enoxaparin Sodium 40 MG/0.4 ML SYRINGE SUBCUT (13:46)
[2020-12-07] VITALS (10 sets, daily range): BP systolic 113–148; BP diastolic 73–98; PULSE 58–135; RESP 17–18; TEMP 36.2–36.8; O2SAT 93–98
--- NOTE | 2020-12-07 | ECG_ITS ---
Test Reason : AFib Blood Pressure : / mmHG Vent. Rate : 071 BPM Atrial Rate : 071 BPM P-R Int : 118 ms QRS Dur : 076 ms QT Int : 356 ms P-R-T Axes : 004 006 065 degrees QTc Int : 386 ms Sinus rhythm with Premature atrial complexes Low voltage QRS Septal infarct (cited on or before 13-NOV-2015) T wave abnormality, consider anterior ischemia Abnormal ECG When compared with ECG of 01-DEC-2020 09:47, T wave inversion more evident in Septal leads Heart rate has decreased Referred By: Dave Jolley Electronically Signed By:YOHANA ANTONIO
[2020-12-07] MEDS: Losartan Potassium 50 MG TABLET 100 MG PO (09:06)
[2020-12-07] MEDS: Acetaminophen 325 MG TABLET 650 MG PO ×3 (09:07→21:09)
[2020-12-07] MEDS: 0.9 % Sodium Chloride Flush 3 ML SYRINGE IVFLUSH ×2 (09:07→21:10)
[2020-12-07] MEDS: Metoprolol Tartrate 12.5 MG HALFTAB PO ×2 (09:26→21:09)
[2020-12-07 09:41] LABS: Vancomycin Trough < 3.0 mcg/mL (10.0-20.0)
--- NOTE | 2020-12-07 11:03 | MHC.CLN ---
F/U PO INTAKE 50-100% WT STABLE DIET RX: REGULAR-APPROPRIATE PT RECEIVING 8OZ ENSURE BID PROVIDES AN ADDITIONAL 700KCALS, 40G PROTEIN MONITOR PO INTAKE CLOSELY
[2020-12-07] MEDS: Enoxaparin Sodium 40 MG/0.4 ML SYRINGE SUBCUT (12:56)
--- NOTE | 2020-12-07 15:08 | MHC.CM.PN ---
per rounds pt may need 6 weeks miv antbiotics pending results of blood cultures
--- NOTE | 2020-12-07 17:12 | HO.PM.IMPN ---
Subjective Subjective Date of Service: 12/07/20 Interval History: the patient was seen and evaluated this morning Feels better today Still complaining of back pain Denies any fever, chills or shortness of breath No reported other overnight events. Systemic review: No fever, chills but complained of generalized weakness No chest pain, palpitation No shortness of breath or coughing No abdominal pain, nausea or vomiting No urinary symptoms Complaining mainly of back pain Physical Exam Vital Signs: Vital Signs: Last Vital Signs Temp 97.9 F 12/07/20 15:06 Pulse 92 12/07/20 15:06 Resp 17 12/07/20 15:06 BP 148/82 H 12/07/20 15:06 Pulse Ox 95 12/07/20 15:06 Body Mass Index 17.5 Const: Other: Constitutional : Alert, oriented, not in distress but looks weak Neck : Normal inspection, Supple Cardiovascular : RRR, S1 S2, trace lower extremity edema Respiratory : Good bilateral air entry, no crackles, wheezes or rhonchi Gastrointestinal: soft, lax, Normal bowel sounds, Non tender Skin : Warm, Dry, multiple bruises Neurological : Alert & oriented to self and place No focal deficit Objective Data Current Medications Generic Name Dose Route Start Last Admin Trade Name Freq PRN Reason Stop Dose Admin Acetaminophen 650 mg 12/01/20 12:46 12/03/20 18:00 Acetaminophen 325 Mg Tablet PO 650 mg Q6H PRN Administration Pain, Mild (Pain Scale 1-3) Acetaminophen 650 mg 12/05/20 17:05 12/07/20 09:07 Acetaminophen 325 Mg Tablet PO 650 mg TID NAI Administration Enoxaparin Sodium 40 mg 12/03/20 12:00 12/07/20 12:56 Enoxaparin Sodium 40 Mg/0.4 Ml Syringe SUBCUT 40 mg DAILY@1200 NAI Administration Cefazolin Sodium 2 gm/ Sodium 50 mls @ 100 mls/hr 12/04/20 12:00 12/07/20 15:04 Chloride IV Infused Q8H NAI Infusion Losartan Potassium 100 mg 12/02/20 09:00 12/07/20 09:06 Losartan Potassium 50 Mg Tablet PO 100 mg DAILY NAI Administration Protocol Metoprolol Tartrate 12.5 mg 12/07/20 09:30 12/07/20 09:26 Metoprolol Tartrate 12.5 Mg Halftab PO 12.5 mg BID NAI Administration Protocol Pharmacy Consult 1 each 12/01/20 09:38 Consult Rx Perform Med Rec MISCELLANE ONCE PRN Consult order Pharmacy Consult 1 each 12/01/20 22:24 Consult Rx Vancomycin Dosing MISCELLANE DAILY PRN Consult order Potassium Chloride 10 meq 12/02/20 09:00 12/07/20 09:06 Potassium Chloride Er 10 Meq Capsule.Er PO 10 meq DAILY NAI Administration Sodium Chloride 3 ml 12/01/20 16:00 12/07/20 09:07 0.9 % Sodium Chloride Flush 3 Ml Syringe IVFLUSH 3 ml QSHIFT NAI Administration Labs CBC & Chem 7: 12/06/20 05:56 12/06/20 05:56 Labs: Laboratory Results - last 24 hr 12/07/20 09:04 Vancomycin Trough < 3.0 L Microbiology Microbiology Results: Microbiology 12/05/20 14:57 Blood Culture - Preliminary Blood - Venous No growth after 48 hours. 12/05/20 15:02 Blood Culture - Preliminary Blood - Venous No growth after 48 hours. 12/06/20 05:56 Blood Culture - Preliminary Blood - Venous No growth after 24 hours. 12/06/20 06:11 Blood Culture - Preliminary Blood - Venous No growth after 24 hours. Assessment and Plan (1) Physical deconditioning: Status: Acute (2) Staphylococcus aureus bacteremia: Status: Acute Assessment and Plan: 85/ F HTN who presented with weakness and falls, found to have hypokalemia, hyponatremia, leukocytosis and now staph Aureus Bacteremia Staph Aurius bacteremia MSSA Repeated cultures are positive for the 3rd time repeate blood cultures from 12/[address] PICC line Continue cephazolin Echo 12/02 no vegetation or endocarditis Pending bone scan reading Id input appreciated, will need long-term IV antibiotics Multiple falls 2/2 physical deconditioning failure to thrive, possible due to alcohol dependence vs elecrolyte abnormalities vs infection CT of head, and neck with no abnormalities PT eval appreciated, plan for STR at SNF when medically stable Tachycardia Mainly sinus with episodes of PACs Asymptomatic mainly between 90 to 110s but can go up to 150s Continue to monitor and if symptomatic use small dose PP hypokalemia corrected Hold HCTZ hyponatremia Resolved Metabolic encephalopathy Improving d/t bactereemia, electrolytes abnormalities alcohol dependence no evidence of withdrawal at this time, monitor ciwa HTN continue Losartan Quality Stroke Does the patient have a stroke diagnosis?: No VTE Prior VTE?: No VTE Risk Level:: Medical - moderate - high VTE Device Contraindication: Treatment Not Indicated VTE Drug Contraindication: N/A - Med Ordered
[2020-12-08 03:07] VITALS: BP 137/86; PULSE 95; RESP 20; TEMP 37.4; O2SAT 93
[2020-12-08 06:17] LABS: Hematocrit 34.2 % (37-47); Hemoglobin 11.9 g/dl (12.0-16.0); Mean Corpuscular HGB Conc 34.8 g/dl (31.0-35.0); Mean Corpuscular Hemoglobin 32.3 pg (27.0-33.0); Mean Corpuscular Volume 92.9 fL (80-98); Mean Platelet Volume 10.5 fL (9.4-12.3); Platelet Count 427 X10*3/uL (160-400); Red Blood Count 3.68 X10*6/uL (4.20-5.50); Red Cell Distribution Width 14.3 % (11.0-16.0); White Blood Count 11.5 X10*3/uL (4.8-10.8)
[2020-12-08 06:37] LABS: Anion Gap 11 (12-20); Blood Urea Nitrogen 14 mg/dL (9-16); Calcium 8.1 mg/dL (8.4-10.2); Carbon Dioxide 26 mmol/L (22-29); Chloride 103 mmol/L (96-108); Creatinine Clr Calc Pharmacy 58.9; Estimated Glomerular Filt Rate > 60; Glucose Random 72 mg/dL (60-115); Potassium 3.6 mmol/L (3.3-5.1); Sodium 136 mmol/L (135-145)
[2020-12-08 07:13] VITALS: BP 148/82; PULSE 71; RESP 18; TEMP 36.5; O2SAT 97
[2020-12-08] MEDS: 0.9 % Sodium Chloride Flush 3 ML SYRINGE IVFLUSH (07:43)
[2020-12-08 09:43] VITALS: BP 148/82; PULSE 71
[2020-12-08] MEDS: Losartan Potassium 50 MG TABLET 100 MG PO (09:43)
[2020-12-08] MEDS: Metoprolol Tartrate 12.5 MG HALFTAB PO (09:43)
[2020-12-08] MEDS: Acetaminophen 325 MG TABLET 650 MG PO (09:43)
[2020-12-08 11:25] VITALS: BP 148/82; PULSE 71
--- NOTE | 2020-12-08 11:39 | P.PNIM_ITS ---
Subjective Subjective Date of Service: 12/08/20 Interval History: the patient was seen and evaluated this morning Still complaining of back pain but overall improved Repeated cultures remain negative Denies any fever, chills or shortness of breath No reported other overnight events. Systemic review: No fever, chills but complained of generalized weakness No chest pain, palpitation No shortness of breath or coughing No abdominal pain, nausea or vomiting No urinary symptoms Complaining mainly of back pain Physical Exam Vital Signs: Vital Signs: Last Vital Signs Temp 97.7 F 12/08/20 07:13 Pulse 71 12/08/20 11:25 Resp 18 12/08/20 07:13 BP 148/82 H 12/08/20 11:25 Pulse Ox 97 12/08/20 07:13 Body Mass Index 17.5 Const: Other: Constitutional : Alert, oriented, not in distress but looks weak Neck : Normal inspection, Supple Cardiovascular : RRR, S1 S2, trace lower extremity edema Respiratory : Good bilateral air entry, no crackles, wheezes or rhonchi Gastrointestinal: soft, lax, Normal bowel sounds, Non tender Skin : Warm, Dry, multiple bruises Neurological : Alert & oriented to self and place No focal deficit Objective Data Current Medications Generic Name Dose Route Start Last Admin Trade Name Freq PRN Reason Stop Dose Admin Acetaminophen 650 mg 12/01/20 12:46 12/03/20 18:00 Acetaminophen 325 Mg Tablet PO 650 mg Q6H PRN Administration Pain, Mild (Pain Scale 1-3) Acetaminophen 650 mg 12/05/20 17:05 12/08/20 09:43 Acetaminophen 325 Mg Tablet PO 650 mg TID NAI Administration Enoxaparin Sodium 40 mg 12/03/20 12:00 12/07/20 12:56 Enoxaparin Sodium 40 Mg/0.4 Ml Syringe SUBCUT 40 mg DAILY@1200 NAI Administration Cefazolin Sodium 2 gm/ Sodium 50 mls @ 100 mls/hr 12/04/20 12:00 12/08/20 03:53 Chloride IV Infused Q8H NAI Infusion Losartan Potassium 100 mg 12/02/20 09:00 12/08/20 09:43 Losartan Potassium 50 Mg Tablet PO 100 mg DAILY NAI Administration Protocol Metoprolol Tartrate 12.5 mg 12/07/20 09:30 12/08/20 09:43 Metoprolol Tartrate 12.5 Mg Halftab PO 12.5 mg BID NAI Administration Protocol Pharmacy Consult 1 each 12/01/20 09:38 Consult Rx Perform Med Rec MISCELLANE ONCE PRN Consult order Pharmacy Consult 1 each 12/01/20 22:24 Consult Rx Vancomycin Dosing MISCELLANE DAILY PRN Consult order Potassium Chloride 10 meq 12/02/20 09:00 12/08/20 09:43 Potassium Chloride Er 10 Meq Capsule.Er PO 10 meq DAILY NAI Administration Sodium Chloride 3 ml 12/01/20 16:00 12/08/20 07:43 0.9 % Sodium Chloride Flush 3 Ml Syringe IVFLUSH 3 ml QSHIFT NAI Administration Labs CBC & Chem 7: 12/08/20 05:26 12/08/20 05:26 Labs: Laboratory Results - last 24 hr 12/08/20 12/08/20 05:26 05:26 MCV 92.9 MCH 32.3 MCHC 34.8 RDW 14.3 Plt Count 427 H D MPV 10.5 Absolute Nucleated RBC 0.000 Nucleated RBC % (auto) 0.0 Anion Gap 11 L Estim Creat Clear Calc 58.9 Estimated GFR > 60 Random Glucose 72 Calcium 8.1 L Microbiology Microbiology Results: Microbiology 12/06/20 05:56 Blood Culture - Preliminary Blood - Venous No growth after 48 hours. 12/06/20 06:11 Blood Culture - Preliminary Blood - Venous No growth after 48 hours. 12/03/20 05:10 Blood Culture - Final Blood - Venous Staphylococcus aureus 12/03/20 05:01 Blood Culture - Final Blood - Venous Staphylococcus aureus 12/05/20 14:57 Blood Culture - Preliminary Blood - Venous No growth after 48 hours. 12/05/20 15:02 Blood Culture - Preliminary Blood - Venous No growth after 48 hours. Assessment and Plan (1) Physical deconditioning: Status: Acute (2) Back pain: Status: Acute (3) Staphylococcus aureus bacteremia: Status: Acute Assessment and Plan: 85/ F HTN who presented with weakness and falls, found to have hypokalemia, hyponatremia, leukocytosis and now staph Aureus Bacteremia Staph Aurius bacteremia MSSA repeate blood cultures from 12/[address] PICC line Continue cephazolin for total of 6 weeks, starting with the 1st negative culture Echo 12/02 no vegetation or endocarditis Bone scan showed compression fracture but no evidence of discitis Id input appreciated, will need long-term IV antibiotics Multiple falls 2/2 physical deconditioning failure to thrive, possible due to alcohol dependence vs elecrolyte abnormalities vs infection CT of head, and neck with no abnormalities PT eval appreciated, plan for STR at SNF when medically stable Tachycardia Mainly sinus with episodes of PACs Asymptomatic mainly between 90 to 110s but can go up to 150s Started on small dose of metoprolol 12.5 b.i.d. with good response, to disconti nue and monitor hypokalemia corrected Hold HCTZ hyponatremia Resolved Metabolic encephalopathy Improving d/t bactereemia, electrolytes abnormalities alcohol dependence no evidence of withdrawal at this time, monitor ciwa HTN continue Losartan Quality Stroke Does the patient have a stroke diagnosis?: No VTE Prior VTE?: No VTE Risk Level:: Medical - moderate - high VTE Device Contraindication: Treatment Not Indicated VTE Drug Contraindication: N/A - Med Ordered
--- NOTE | 2020-12-08 12:44 | HO.PICC ---
[facility]: MSSA BACTEREMIA Indication: [HALFWAY ANTIBX 6 WEEK] Pertinent Labs: [REVIEWED] Technique: Following informed consent including risks, benefits and alternatives and using sterile technique including cap and mask, sterile gown, glove and drape, the [RIGHT] arm was prepped and draped in the usual sterile fashion of full barrier technique with CHG. Following completion of [place] Protocol the skin and soft tissues were anesthetized with 1% Lidocaine plain. Using ultrasound guidance, [RIGHT BASILIC] vein access was obtained ON THE FIRST ATTEMPT.. Over an 0.018 wire through peel-away sheath, a [4 FR SINGLE LUMEN] PICC line was positioned. Catheter length is [34CM] internal length, [0CM] external length, for a total trimmed length of [34CM]. The procedure was performed in [RM. 272]. Tip verification was performed by Juliana Ulloa with [employer] 3CG. Tip located in SVC. Ultrasound was used to document vein patency and for needle entry. A formal ultrasound picture and cardiac rhythm strip was recorded. Vascular Shipper Receiver has released the line for use and it is currently dressed with a StatLock, Tegaderm, and CHG disc. Verification has been performed for blood return and line patency. Arm Circumference: [20cm] Equipment: [[employer] POWER PICC SOLO ] Catheter Type: [4FR SINGLE LUMEN PICC] Lot #: [[id number]]
[2020-12-08] MEDS: Enoxaparin Sodium 40 MG/0.4 ML SYRINGE SUBCUT (13:42)
--- NOTE | 2020-12-08 14:27 | MHC.CM.PN ---
[facility] prior ro visitn to check on any visiting precautions that might be i n place
--- NOTE | 2020-12-08 14:41 | P.DS_ITS ---
DS: Providers Provider Date of Service: 12/08/20 Date of admission: 12/01/20 12:47 Primary care physician: Ar Lundberg MD Consults: 12/02/20 13:37 Consult to Infectious Diseases Routine Consulting Provider: Rossana Jung Reason for consultation: 07/12 staph in blood DS: Diagnosis Discharge Diagnosis (1) Physical deconditioning: Status: Acute (2) Back pain: Status: Acute (3) Staphylococcus aureus bacteremia: Status: Acute (4) Acute hyponatremia: Status: Acute (5) Acute hypokalemia: Status: Acute (6) Compression fracture of L1 lumbar vertebra: Status: Acute (7) Falls: Status: Acute (8) Acidosis, lactic: Status: Acute (9) Leukocytosis: Status: Acute (10) Adult failure to thrive: Status: Acute DS: Medications Discharge Medications Home Medications: Previous Rx's Medication Instructions Recorded potassium chloride 10 mEq 10 meq PO DAILY 90 Days #90 tab 07/09/20 tablet,extended release (Klor-Con) lorazepam 1 mg tablet 0.5 mg PO BID PRN 30 Days #60 tab 10/02/20 losartan 100 mg tablet 100 mg PO DAILY #90 tab 11/08/20 cefazolin 1 gram solution for 2 g IV Q8H 38 Days ea 12/08/20 injection DS: Summary Hospital Course Hospital Course: Admission note HPI 85F vague historian. asked son-in-law to call 911 this AM as she felt too weak to get out of bed. reports several falls over last few days, generalized weakness. denies specific complaints such as fever, chills, cough, sob, chest pain, diarrhea, n/v, dysuria or frequency. in ED found to have leukocytosis, hypokalemia, hyponatremia. given rocephin, potassium, and iv fluids. Hospital course 85/ F HTN? who presented with weakness and falls, found to have hypokalemia, hyponatremia, leukocytosis and now staph Aureus Bacteremia Staph Aurius bacteremia MSSA Believed to be secondary to skin infection. Evaluated by infectious disease specialist. repeate blood cultures from 12/05 negative PICC line placed. Treated with cephazolin with good response the course of hospital stay. Id recommended total of 6 weeks of cefazolin. ?Echo 12/02 no vegetation or endocarditis Bone scan showed compression fracture but no evidence of discitis To be discharged to [facility] to finish antibiotics treatment. Multiple falls, adult failure to thrive 2/2 physical deconditioning Likely due to history of alcohol dependence vs elecrolyte abnormalities vs infection CT of head, and neck with no abnormalities Patient found to L1 compression fracture, pain controlled fairly with Tylenol narcotics avoid for history of encephalopathy Evaluated by physical therapy team who recommended short-term. hypokalemia hyponatremia Replaced and corrected To discontinue hydrochlorothiazide Repeat BMP in 1 week Time Spent with Patient Time attestation: Total time spent providing and/or coordinating discharge services: Discharge coordination time: Greater than 30 minutes Quality: Stroke Does the patient have a stroke diagnosis?: No Physical Exam Vital Signs: Vital Signs: Last Vital Signs Temp 97.7 F 12/08/20 07:13 Pulse 71 12/08/20 11:25 Resp 18 12/08/20 07:13 BP 148/82 H 12/08/20 11:25 Pulse Ox 97 12/08/20 07:13 Body Mass Index 17.5 Const: Other: Constitutional : Alert, oriented, not in distress but looks weak Neck : Normal inspection, Supple Cardiovascular : RRR, S1 S2, trace lower extremity edema Respiratory : Good bilateral air entry, no crackles, wheezes or rhonchi Gastrointestinal: soft, lax, Normal bowel sounds, Non tender Skin : Warm, Dry, multiple bruises Neurological : Alert & oriented to self and place No focal deficit DS: Data Data Completed and Pending Labs on day of discharge: Laboratory Results - last 24 hr 12/08/20 12/08/20 05:26 05:26 WBC 11.5 H RBC 3.68 L Hgb 11.9 L Hct 34.2 L MCV 92.9 MCH 32.3 MCHC 34.8 RDW 14.3 Plt Count 427 H D MPV 10.5 Absolute Nucleated RBC 0.000 Nucleated RBC % (auto) 0.0 Sodium 136 Potassium 3.6 Chloride 103 Carbon Dioxide 26 Anion Gap 11 L BUN 14 Creatinine 0.58 Estim Creat Clear Calc 58.9 Estimated GFR > 60 Random Glucose 72 Calcium 8.1 L Preliminary micro results at discharge 12/06/20 05:56 Blood Culture - Preliminary Blood - Venous No growth after 48 hours. 12/06/20 06:11 Blood Culture - Preliminary Blood - Venous No growth after 48 hours. 12/05/20 14:57 Blood Culture - Preliminary Blood - Venous No growth after 48 hours. 12/05/20 15:02 Blood Culture - Preliminary Blood - Venous No growth after 48 hours. Discharge Plan Discharge Patient Disposition: Xfer [facility] Discharge Diagnosis: Staph Aureus bacteremia Falls Electrolytes imbalance Referrals: jayson [Other] - 1 Week Ar Lundberg MD [Primary Care Provider] - 1 Week Discharge Medications: New cefazolin 1 gram Recon Soln 2 g IV Q8H 38 Days RF: 0 Continued lorazepam 1 mg tablet 0.5 mg PO BID PRN (Reason: anxiety) 30 Days Qty: 60 RF: 0 losartan 100 mg tablet 100 mg PO DAILY Qty: 90 RF: 1 potassium chloride [Klor-Con 10] 10 mEq tablet extended release 10 meq PO DAILY 90 Days Qty: 90 RF: 3 Discontinued hydrochlorothiazide 25 mg tablet 25 mg PO DAILY 90 Days Qty: 90 RF: 0 Discharge Orders: Discharge Order (Routine); Ordered 12/08/20 Ordered By: Dave Jolley Diet: advance to usual diet Activity on Discharge: As tolerated Stand Alone Forms: Patient Portal Discharge page Care Plan Goals: Read below Health Concerns: Read below Plan of Treatment: You were admitted to the hospital for evaluation of weakness and falls. You were found to have electrolyte imbalance with low sodium which were replaced. Your blood culture showed evidence of bacteria growing in your blood called Staph aureus treated with IV antibiotics and evaluated by infectious disease specialist who recommended total of 6 weeks of antibiotics. Images if your back showed evidence of compression fracture Assessment: Continue antibiotics as prescribed To stop hydrochlorothiazide and monitor your blood pressure as outpatient
[2020-12-08 14:53] LABS: COVID-19 Test Negative (Negative); IDNOW Serial# 9DD0AD1C
--- NOTE | 2020-12-08 15:36 | PC.NURSE ---
pt to bathroom with RN. Pt bent down to ick up a paper towel, RN asked pt to stop. Pt continued, lost balance and sat on floor. RN assisted pt to standing and pt ambulated back to bed with walker. Pt in bed with bed alarm and camera.
[2020-12-08 15:38] VITALS: BP 134/81; PULSE 75; RESP 16; TEMP 36.8; O2SAT 96
--- NOTE | 2020-12-08 15:52 | PC.NURSE ---
power plant supervisor and family member Don aware of pt's assisted descent to floor.
== END 2020-12-08 16:30 | disposition skilled nursing facility (03) | DRG 640 ==
LOC: HO.ED 12:13 → HO.EDOVER 12:52 → HO.IMC 12:53
PROVIDERS: Internal Medicine; Admitting Provider Internal Medicine; Emergency Provider Emergency Medicine; PCP Internal Medicine; Visit Provider Student in an Organized Health Care Education/Training Program
DX: E87.1 Hypo-osmolality and hyponatremia (principal); G93.41 Metabolic encephalopathy; S32.019A Unspecified fracture of first lumbar vertebra, initial encounter for closed fracture; R78.81 Bacteremia; Z68.1 Body mass index [BMI] 19.9 or less, adult; F17.210 Nicotine dependence, cigarettes, uncomplicated; Z71.6 Tobacco abuse counseling; F10.20 Alcohol dependence, uncomplicated; D72.829 Elevated white blood cell count, unspecified; R00.0 Tachycardia, unspecified; B95.61 Methicillin susceptible Staphylococcus aureus infection as the cause of diseases classified elsewhere; I49.1 Atrial premature depolarization; R29.6 Repeated falls; Z91.81 History of falling; E87.6 Hypokalemia; W18.30XA Fall on same level, unspecified, initial encounter; Y93.9 Activity, unspecified; Y92.009 Unspecified place in unspecified non-institutional (private) residence as the place of occurrence of the external cause; Y99.9 Unspecified external cause status; R62.7 Adult failure to thrive; Z20.822 Contact with and (suspected) exposure to COVID-19; Z79.899 Other long term (current) drug therapy
CPT/HCPCS: 36415; 36573; 70450; 71250; 72125; 73120; 74176; 78315; 80048; 80076; 80202; 81003; 82077; 82550; 82947; 83605; 83690; 83735; 84443; 84484; 85007; 85027; 85610; 85730; 87040; 87077; 87147; 87186; 87205; 87635; 93005; 93306; 96361; 96365; 96366; 96367; 96375; 97110; 97116; 97161; 97530; 99285; A9503; J0690; J0696; J1650; J3370; J3411; J3475

== ENCOUNTER 2020-12-30 22:57 | Inpatient (IN) | payer MEDICARE, SELFPAY ==
--- NOTE | ~2020-12-30 | CT_ITS ---
EXAMINATION: NONCONTRAST HEAD CT NONCONTRAST FACIAL BONES CT NONCONTRAST CERVICAL SPINE CT INDICATION INFORMATION: Head and facial trauma COMPARISON: 12/03/2020 TECHNIQUE: Separate noncontrast CT examinations of the head, maxillofacial bones, and cervical spine were performed. Coronal and sagittal images were created for each examination at the technologist workstation. DOSE LOWERING TECHNIQUES: This CT examination was performed using dose optimization techniques as appropriate, variously including the following: - Automated exposure control - Adjustment of mA and/or kV according to patient size (this includes techniques or standardized protocols for targeted exams were dose is matched to indication/reason for exam; i.e. extremities or head) - Use of iterative reconstruction technique DLP: 1504 mGy-cm FINDINGS: Head: There is no evidence of acute intracranial hemorrhage or territorial infarction. No abnormal mass-effect or midline shift is seen. [place] to white matter differentiation is well preserved. No extra-axial fluid collections are identified. The ventricles are normal in size. There is moderate periventricular white matter hypoattenuation consistent with chronic small vessel ischemic disease. Mild volume loss is noted. Redemonstrated calcification at the left cerebellopontine angle, favored to represent a meningioma. The osseous structures and soft tissues are normal. The mastoid air cells are well aerated. Maxillofacial: No acute maxillofacial fractures are seen. There is soft tissue swelling in the right zygomaticomaxillary region with a focal hematoma measuring up to approximately 2 cm. The frontal, maxillary, ethmoid, and sphenoid sinuses are well aerated. The uncinate process is normal bilaterally. The infundibula and middle meati are patent. The nasal septum is midline. The mandibular condyles are well-seated in the condylar fossa. The orbits demonstrate a normal appearance bilaterally. The globes are intact, and there are no suspicious findings to suggest retrobulbar hemorrhage. Cervical spine: There is anatomic alignment of the vertebral bodies and posterior elements. Vertebral body heights are maintained. There is disc space narrowing at C6-C7 with associated endplate osteophytes. Mild to moderate multilevel facet arthropathy. Redemonstrated partial anterior wedge deformity of T1 with approximately 30% loss of height, similar to prior. No new acute fracture. No prevertebral soft tissue swelling. Visualized portions of the lung apices demonstrate emphysema. Redemonstrated right thyroid nodules containing some calcifications. CT/CT cervical spine wo con IMPRESSION: 1. No acute intracranial findings. 2. No facial fracture identified. Right zygomaticomaxillary soft tissue swelling and focal hematoma. 3. No acute findings identified in the cervical spine. Redemonstrated partial anterior compression deformity of T1, similar to prior.
--- NOTE | ~2020-12-30 | XR_ITS ---
EXAMINATION: XR PELVIS CLINICAL INFORMATION: Fall, hip pain. COMPARISON: None TECHNIQUE: AP view of the pelvis. FINDINGS: There is mild loss of bilateral hip joints with periarticular spurring. SI joints are symmetric and normal. No lytic or sclerotic process seen. There is no visible acute fracture or dislocation seen. XR/XR pelvis 1-2V IMPRESSION: Mild degenerative changes bilateral hip joints. No visible acute fracture or dislocation seen.
--- NOTE | ~2020-12-30 | XR_ITS ---
EXAMINATION: XR CHEST CLINICAL INFORMATION: Atrial fibrillation, syncope COMPARISON: 12/01/2020 TECHNIQUE: AP portable upright radiograph of the chest. FINDINGS: Right PICC tip lies in the region of the upper SVC. Lungs are hyperinflated consistent with emphysema/COPD. Patchy retrocardiac opacity is suspected at the left lung base. Right lung appears clear. No evidence of pneumothorax or significant pleural effusion. Cardiac size is within normal limits. Calcification is present at the aortic arch. No acute osseous findings are seen. XR/XR chest 1V IMPRESSION: Patchy left basilar opacity may represent atelectasis or consolidation. Hyperinflated lungs consistent with emphysema/COPD.
--- NOTE | ~2020-12-30 | XR_ITS ---
EXAMINATION: PORTABLE CHEST 1 VIEW CLINICAL INFORMATION: Short of breath. COMPARISON: 01/03/2021 earlier today. TECHNIQUE: Portable frontal view of the chest was obtained. FINDINGS: Lungs are well expanded. There is blunting of both costophrenic angle suggesting small layering bilateral pleural effusions. Associated bibasilar consolidation/atelectasis similar to earlier today. Mild central vascular prominence but no overt edema. No pneumothorax. Cardiac and mediastinal silhouettes within normal limits for size with vascular calcification in the aorta. Right arm PICC line tip near the expected cavoatrial junction. XR/XR chest 1V IMPRESSION: Small layering bilateral pleural effusions with associated basilar consolidation/atelectasis, similar to earlier today.
--- NOTE | ~2020-12-30 | XR_ITS ---
EXAMINATION: XR CHEST CLINICAL INFORMATION: SOB. COMPARISON: Chest 12/31/2020 TECHNIQUE: Frontal view of the chest was obtained. FINDINGS: The lungs are well-expanded with patchy opacity in the right lung base likely effusion/atelectasis infiltrate. Rest lungs are clear. Heart size and perivascular is normal. No gross bony abnormality seen. There is a right PICC line with its tip in mid SVC. XR/XR chest 1V IMPRESSION: New patchy opacity right lung base likely infiltrate or atelectasis.
[2020-12-30 23:11] VITALS: BP 160/90; BP 173/101; PULSE 80; PULSE 97; RESP 24; TEMP 36.6; O2SAT 95; O2SAT 96; BMI 16.6
--- NOTE | 2020-12-30 23:22 | ED.FALL ---
HPI - Fall General Chief Complaint: Fall Stated Complaint: UNWITNESSED FALL Time Seen by Provider: 12/30/20 23:22 Source: EMS Mode of arrival: EMS Limitations: altered mental status History of Present Illness HPI Narrative: unwitnessed fall, found unconscious. Unknown amount of time Onset (ago): hour(s) Fall witnessed: no Place fall occurred: residential[facility]NF Loss of consciousness: yes Prolonged down time: yes Symptoms prior to fall: other (unknown) Location of injury: head and face Related Data Previous Rx's Medication Instructions Recorded potassium chloride 10 mEq 10 meq PO DAILY 90 Days #90 tab 07/09/20 tablet,extended release (Klor-Con) lorazepam 1 mg tablet 0.5 mg PO BID PRN 30 Days #60 tab 10/02/20 losartan 100 mg tablet 100 mg PO DAILY #90 tab 11/08/20 cefazolin 1 gram solution for 2 g IV Q8H 38 Days ea 12/08/20 injection Allergies Allergy/AdvReac Type Severity Reaction Status Date / Time No Known Allergies Allergy Verified 07/09/20 08:52 [No Known Allergies*] Review of Systems Review of Systems: Yes Unobtainable due to mental status Neurologic: Denies Sensory deficit (Neuro) [facility] Past Medical History Medical History Alcohol use Anxiety Back pain Benign essential hypertension Dermatitis, eczematoid Falls Hyponatremia Impaired fasting glucose Polycythemia Pure hypercholesterolemia Smoker Staphylococcus aureus bacteremia Surgical History History of cataract extraction with lens replacement Status post total abdominal hysterectomy and bilateral salpingo-oophorectomy (RAMON-BSO) Family History Family History Other Family history non-contributory Social History Social History Household Members: None Housing: House Do you presently have visiting nurse or other home services: No Alcohol intake: current Patient Tobacco Use Status: Current everyday Tobacco user Tobacco use type: Cigarette Cigarettes Per Day: 8 e-Cigarette/Vaping Use: Never Used Second Hand Smoke Exposure: No Advance Directives: Yes Advance Directives on File: Yes Advance Directives Date on File: 12/01/20 service: No Physical Exam Vital Signs: Vital Signs: Last Vital Signs Temp 97.9 F 12/30/20 23:11 Pulse 97 12/30/20 23:11 Resp 24 H 12/30/20 23:11 BP 173/101 H 12/30/20 23:11 Pulse Ox 95 12/30/20 23:11 Body Mass Index 16.6 Const: Other: elderly female thin frail, large facial ecchymosis on face draining into the neck. Nutritional Appearance: thin Limitations: altered mental status HENMT: Head: Yes normal to inspection Ears: external ears normal General nose exam: Normal external nose present Mouth: Normal oral and palatal mucosa present and oropharynx normal Throat: Yes posterior oropharynx normal Eyes: General: appearance normal, both eyes and all related structures Neck: Other: supple Neck: Yes normal visual inspection Chest: Chest palpation & inspection: normal inspection of the chest Resp: Auscultation: clear to auscultation bilaterally Cardio: Other: IRRR 3/6 SONIA GI: Inspection: Yes normal to inspection Palpation (GI): Soft to palpation, nontender and No hepatosplenomegaly present Auscultation: normal bowel sounds : General: Yes no CVA tenderness Back/Spine/Pelvis: Back: no CVA tenderness Skin: General skin exam: no rashes or lesions noted Neuro: Cranial nerves: Yes CN's II-XII intact bilaterally Motor exam (neuro): 5/5 motor strength present throughout Sensory Exam: No Sensory deficit (Neuro) Extrem: General: Yes normal to inspection Psych: Other: dementia mumbles Course Reevaluation(s) Reevaluation #1: Patient with rapid atrial fibrillation will admit Time: 06:18 [facility] - Fall Lab Data Result diagrams: 12/31/20 00:29 12/31/20 00:29 Labs: Lab Results 12/31/20 12/31/20 12/31/20 Range/Units 00:29 00:29 03:02 Sodium 135 (135-145) mmol/L Potassium 4.3 (3.3-5.1) mmol/L Chloride 96 (96-108) mmol/L Carbon Dioxide 27 (22-29) mmol/L Anion Gap 16 (12-20) BUN 12 (9-16) mg/dL Creatinine 0.73 (0.5-1.4) mg/dL Estim Creat Clear Calc 44.3 Estimated GFR > 60 Random Glucose 208 H (60-115) mg/dL Calcium 9.8 D (8.4-10.2) mg/dL Troponin I High Sens 13.0 D (<3.5-17.0) ng/L COVID-19 (RANDY) Negative (Negative) COVID-19 Clin Com See Note ECG Data Attestation: I personally reviewed and interpreted this ECG as follows: Interpretation: rapid atrial fibrillation, rate 140, no st or twave changes. Discharge Plan Discharge Clinical Impression: Syncope, Atrial fibrillation Patient Disposition: Admitted As Inpatient Prescriptions: No Action lorazepam 1 mg tablet 0.5 mg PO BID PRN (Reason: anxiety) 30 Days Qty: 60 RF: 0 losartan 100 mg tablet 100 mg PO DAILY Qty: 90 RF: 1 cefazolin 1 gram Recon Soln 2 g IV Q8H 38 Days RF: 0 potassium chloride [Klor-Con 10] 10 mEq tablet extended release 10 meq PO DAILY 90 Days Qty: 90 RF: 3
--- NOTE | 2020-12-30 23:26 | ECG_ITS ---
Test Reason : REPEAT Blood Pressure : / mmHG Vent. 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
[2020-12-31] VITALS (13 sets, daily range): BP systolic 110–175; BP diastolic 64–101; PULSE 76–147; RESP 13–18; TEMP 36.4–36.9; O2SAT 91–95; BMI 15.8
[2020-12-31 00:34] LABS: Basophils Percent Auto 0.1 % (0-2); Hematocrit 45.5 % (37-47); Hemoglobin 15.5 g/dl (12.0-16.0); Imm Gran Abs Auto 0.06 X10*3/uL (0.00-0.03); Imm Gran Pct Auto 0.4 % (0.0-0.4); Lymphocytes Absolute Auto 0.6 X10*3/uL (1.2-4.9); Lymphocytes Percent Auto 4.1 % (20-40); MANUAL DIFF FLAG NO; Mean Corpuscular HGB Conc 34.1 g/dl (31.0-35.0); Mean Platelet Volume 9.1 fL (9.4-12.3); Monocytes Absolute Auto 0.6 X10*3/uL (0.1-1.2); Neutrophils Absolute Auto 13.1 X10*3/uL (2.0-8.3); Neutrophils Percent Auto 91.4 % (45-73); Platelet Count 401 X10*3/uL (160-400); Red Blood Count 4.84 X10*6/uL (4.20-5.50); Red Cell Distribution Width 13.9 % (11.0-16.0); SCAN SMEAR FLAG 1; White Blood Count 14.4 X10*3/uL (4.8-10.8)
[2020-12-31 05:59] LABS: Anion Gap 16 (12-20); Blood Urea Nitrogen 12 mg/dL (9-16); Calcium 9.8 mg/dL (8.4-10.2); Carbon Dioxide 27 mmol/L (22-29); Chloride 96 mmol/L (96-108); Creatinine Clr Calc Pharmacy 44.3; Estimated Glomerular Filt Rate > 60; Glucose Random 208 mg/dL (60-115); Potassium 4.3 mmol/L (3.3-5.1); Sodium 135 mmol/L (135-145)
[2020-12-31 06:10] LABS: COVID-19 Test Negative (Negative); IDNOW Serial# 9DD0AD1C
--- NOTE | 2020-12-31 07:56 | PC.NURSE ---
Bruising noted to left side of face, behind L leg, open areas, dressings to r knee and lower left leg. patient repositioned. lungs clear, + bowel sounds, no edema noted.
--- NOTE | 2020-12-31 08:31 | P.HPHOSP_ITS ---
History of Present Illness Date of Service: 12/31/20 85/year female with HTN, anxiety, h/o Alcohol use, recurrent falls, poly cythemia, HLD amongst others. She was admitted to the hospital from December 01 through December 08 for issues related to weakness and fall and at that time treated for MSSA bacteremia with Kefzol. She was discharged to [facility] where she remained. She is brought to the emergency room on occasion because of a fall the reportedly was not witness. She sustained a large bruise around her right neck area and around the right eye. She does state that she felt dizzy. In the ED she is noted to be in atrial fibrillation with rapid ventricular response with a heart rate having been up to 160s. She is not currently complaining of palpitation, chest pain or shortness Review of Systems Review of Systems: Gen: no fever Resp: no sob, no cough, no palpitation CV: no chest, no [place], no leg edema GI: No n/v, no abd pain Neuro: No confusion, +dizziness [facility] Medical History Alcohol use Anxiety Back pain Benign essential hypertension Dermatitis, eczematoid Falls Hyponatremia Impaired fasting glucose Polycythemia Pure hypercholesterolemia Smoker Staphylococcus aureus bacteremia Family History (Updated 12/31/20 @ 09:11 by Uday Freire MD) Father Family history non-contributory Mother Family history non-contributory Pertinent family history: father of ID in his 80s Mother of natural causes Surgical History History of cataract extraction with lens replacement Status post total abdominal hysterectomy and bilateral salpingo-oophorectomy (RAMON-BSO) Social History Household Members: None Housing: Longterm Do you presently have visiting nurse or other home services: No Alcohol intake: former Patient Tobacco Use Status: Former Tobacco user Tobacco use type: Cigarette Cigarettes Per Day: 8 e-Cigarette/Vaping Use: Never Used Second Hand Smoke Exposure: No Use of substances other than those prescribed or required for medical reasons: No Currently Displaying Signs/Symptoms of Drug Intoxication Withdrawal: No Have you been hit, kicked, punched, or otherwise hurt by someone within the past year? If so, by whom?: No Do you feel safe in your current relationship?: No Current Relationship Is there a partner from a previous relationship who is making you feel unsafe now?: No Are you made to feel afraid or neglected: No Advance Directives: Yes Advance Directives on File: Yes Advance Directives Date on File: 12/01/20 Do you have thoughts of harming others: None Do you have a plan to hurt others: No Plan Recently lost weight without trying: Unsure Nutrition Risks: No Nutritional Risk Patient : No : No Poor oral hygiene: No service: No Meds Allergies Allergy/AdvReac Type Severity Reaction Status Date / Time No Known Allergies Allergy Verified 07/09/20 08:52 [No Known Allergies*] Home Medications Medication Instructions Recorded Confirmed Last Taken Type acetaminophen 325 mg tablet 975 mg PO Q4H PRN 12/31/20 12/31/20 Unknown History (Tylenol) multivitamin 1 tab PO DAILY 12/31/20 12/31/20 Unknown History potassium chloride 10 mEq 20 meq PO DAILY 12/31/20 12/31/20 Unknown History tablet,extended release (Klor-Con) thiamine HCl (vitamin B1) 100 mg 100 mg PO DAILY 12/31/20 12/31/20 Unknown History tablet Physical Exam Vital Signs and Narrative: Vital Signs: Last Vital Signs Temp 97.7 F 12/31/20 07:47 Pulse 143 H 12/31/20 07:47 Resp 15 12/31/20 07:47 BP 141/91 H 12/31/20 07:47 Pulse Ox 95 12/30/20 23:11 Body Mass Index 16.6 Constitutional Awake and Alert, No apparent distress HEENT-Anicteric Neck Supple, No lymphadenopathy Cardiovascular RRR, No M/R/G, S1 S2, No S3 S4, No pedal edema Respiratory Lungs clear, No respiratory distress Gastrointestinal Non tender, Non-distended Skin No rash, has a large echymosis around right neck area and right eye--see picture Neurological Alert & oriented x3 Psychological Appropriate affect Results Labs CBC and Chem 7: 12/31/20 00:29 01/01/21 06:01 Labs: Laboratory Results - last 24 hr 12/31/20 12/31/20 12/31/20 00:29 00:29 00:29 MCV 94.0 MCH 32.0 MCHC 34.1 RDW 13.9 Plt Count 401 H MPV 9.1 L Immature Gran % (Auto) 0.4 Neut % (Auto) 91.4 H Lymph % (Auto) 4.1 L [place] % (Auto) 4.0 Eos % (Auto) 0.0 Baso % (Auto) 0.1 Lymph # (Auto) 0.6 L [place] # (Auto) 0.6 Eos # (Auto) 0.0 Baso # (Auto) 0.0 Abs Immat Gran (auto) 0.06 H Absolute Neuts (auto) 13.1 H Absolute Nucleated RBC 0.000 Nucleated RBC % (auto) 0.0 Anion Gap 16 Estim Creat Clear Calc 44.3 Estimated GFR > 60 Random Glucose 208 H Calcium 9.8 D Troponin I High Sens 13.0 D COVID-19 (RANDY) COVID-19 Clin Com 12/31/20 03:02 MCV MCH MCHC RDW Plt Count MPV Immature Gran % (Auto) Neut % (Auto) Lymph % (Auto) [place] % (Auto) Eos % (Auto) Baso % (Auto) Lymph # (Auto) [place] # (Auto) Eos # (Auto) Baso # (Auto) Abs Immat Gran (auto) Absolute Neuts (auto) Absolute Nucleated RBC Nucleated RBC % (auto) Anion Gap Estim Creat Clear Calc Estimated GFR Random Glucose Calcium Troponin I High Sens COVID-19 (RANDY) Negative COVID-19 Clin Com See Note Imaging Radiologist's Impressions: Impressions Cervical Spine CT 12/30/20 23:25 IMPRESSION: 1. No acute intracranial findings. 2. No facial fracture identified. Right zygomaticomaxillary soft tissue swelling and focal hematoma. 3. No acute findings identified in the cervical spine. Redemonstrated partial anterior compression deformity of T1, similar to prior. Face CT 12/30/20 23:25 IMPRESSION: 1. No acute intracranial findings. 2. No facial fracture identified. Right zygomaticomaxillary soft tissue swelling and focal hematoma. 3. No acute findings identified in the cervical spine. Redemonstrated partial anterior compression deformity of T1, similar to prior. Head CT 12/30/20 23:26 IMPRESSION: 1. No acute intracranial findings. 2. No facial fracture identified. Right zygomaticomaxillary soft tissue swelling and focal hematoma. 3. No acute findings identified in the cervical spine. Redemonstrated partial anterior compression deformity of T1, similar to prior. Chest X-Ray 12/31/20 02:20 IMPRESSION: Patchy left basilar opacity may represent atelectasis or consolidation. Hyperinflated lungs consistent with emphysema/COPD. Assessment and Plan (1) Atrial fibrillation: Qualifiers: Atrial fibrillation type: unspecified Qualified Code(s): I48.91 - Unspecified atrial fibrillation Status: Acute 85/F with falls coming from assisted with fall and found to have new onset AFIB with RVR 1/new AFIB with RVR--Will attempt rate control with IV cardizem and ultimately transition to oral cardizem or metoprolol -consult cardiology -hold of anticoagulation d/t large echymosis around neck and periorbital area -In the long run she will not be a good candidate for anticoation d/t recurent fall resulting in serious injury 2/ Fall--resulting in right neck and right periorbital echymosis.. There is report of some hip pain, will get Xray of hips, she will need PT eval 3/ Staph Aureues bacteremia from last admission, she was to be on Cefazolin via picc line for 38 mores days, will continue this 4/ HTN--continue Losartan 5/DVT prophylaxis--compression device Quality Stroke Does the patient have a stroke diagnosis?: No VTE Prior VTE?: No VTE Risk Level:: Medical - moderate - high VTE Device Contraindication: N/A - Device Ordered VTE Drug Contraindication: Treatment Not Indicated
--- NOTE | 2020-12-31 08:38 | ECG_ITS ---
Test Reason : FALL Blood Pressure : / mmHG Vent. 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 rate has increased BY 52 BPM Questionable change in QRS axis ST now depressed in Inferior leads Referred By: Andre Bellamy Electronically Signed By:YOHANA ANTONIO
--- NOTE | 2020-12-31 09:10 | PC.NURSE ---
PT'S DAUGHTER JOSELITO LOCKE ([phone]) CALLED [facility] [place] AND WAS UPDATED ON PT STATUS.
[2020-12-31] MEDS: dilTIAZem HCL 125 MG in 0.9 % Sodium Chloride 100 ML 10 MG IVCONT (10:58)
[2020-12-31] MEDS: ceFAZolin Sodium/Dextrose,Iso 2 GM/50 ML PIGGYBACK IV ×2 (13:46→21:52)
[2020-12-31] MEDS: Losartan Potassium 50 MG TABLET 100 MG PO (13:47)
[2020-12-31] MEDS: Digoxin 0.5 MG/2 ML AMPUL 0.125 MG IVPUSH ×2 (15:23→21:53)
[2020-12-31] MEDS: 0.9 % Sodium Chloride Flush 3 ML SYRINGE IVFLUSH ×2 (15:24→21:53)
--- NOTE | 2020-12-31 15:36 | PC.NURSE ---
pt resting in the stretcher alert, pt has noticeable bruising on the left side of the face all the way down to her neck and clavicle area, wound dressing to the left damon area and one on the right knee as well a-fib on the monitor which ranges from 134-115, denies chest pain/sob bp stable Cardizem drip 15mg/h
--- NOTE | 2020-12-31 18:14 | PC.NURSE ---
called [facility] [place], but pt cant go up untill 1900 and the nurse will take report at 1900
--- NOTE | 2020-12-31 19:30 | PC.NURSE ---
assumed care of pt. pt resting in stretcher awaiting to go to floor. cardizem up and running, new bottle hung. pt alert, respirations easy, n/l. skin w/d. pt denies any complaints at this time. pt on monitor with hr 89. will call report.
[2020-12-31] MEDS: dilTIAZem HCL 125 MG in 0.9 % Sodium Chloride 100 ML 15 MG IVCONT (19:31)
--- NOTE | 2020-12-31 20:35 | PC.NURSE ---
floor unable to take report will return call.
--- NOTE | 2020-12-31 20:55 | PC.NURSE ---
report to BEATRIZ Oliva. pt to floor in stretcher with monitor and cardizem drip.
[2021-01-01] VITALS (11 sets, daily range): BP systolic 137–179; BP diastolic 72–99; PULSE 67–85; RESP 18–20; TEMP 36.3–36.7; O2SAT 91–94; BMI 15.8
[2021-01-01] MEDS: ceFAZolin Sodium/Dextrose,Iso 2 GM/50 ML PIGGYBACK IV ×3 (05:20→20:46)
[2021-01-01 06:46] LABS: Anion Gap 14 (12-20); Blood Urea Nitrogen 18 mg/dL (9-16); Calcium 10.1 mg/dL (8.4-10.2); Carbon Dioxide 26 mmol/L (22-29); Chloride 98 mmol/L (96-108); Creatinine Clr Calc Pharmacy 47.6; Estimated Glomerular Filt Rate > 60; Glucose Random 112 mg/dL (60-115); Potassium 4.2 mmol/L (3.3-5.1); Sodium 134 mmol/L (135-145)
[2021-01-01] MEDS: Metoprolol Tartrate 25 MG TABLET PO ×2 (09:29→20:46)
[2021-01-01] MEDS: Losartan Potassium 50 MG TABLET 100 MG PO (09:29)
[2021-01-01] MEDS: 0.9 % Sodium Chloride Flush 3 ML SYRINGE IVFLUSH ×2 (09:30→17:30)
--- NOTE | 2021-01-01 09:51 | MHC.CM.PN ---
callled and spoke with pts hcp esther dumont [phone] who reports that pt is from [facility] and the dc plan would be for,pt to return to [facility] when dcd by [facility] transport
--- NOTE | 2021-01-01 09:56 | PC.NURSE ---
Skin/wound assessment completed today. On admission from a fall at [facility], patient has deep bruising to right face and neck with a hematoma on maxilla. Also, she has skin tears to left skin and ankle and right knee. Wounds cleansed with wound cleanser, Xeroform applied, covered with gauze and roll gauze. Patients skin is very thin, shiny and fragile with scattered bruising on arms and legs. No other skin issues noted at this time. Pictures sent to Dr. Freire to be downloaded to chart.
--- NOTE | 2021-01-01 10:44 | P.CDIC_ITS ---
CDI Concurrent Query Documentation Clarification: PHYSICIAN'S DOCUMENTATION REQUEST Date of Query: 01/01/21 1045 Patient Name: Rachel Sutton Admit Date: 12/31/20 Dear Doctor, A review of the medical record indicates additional documentation may be needed. Please review below and update the documentation accordingly. Risk Factors/Clinical Indicators/Treatments BMI 15.9 Falling at [facility] If possible, please provide an associated diagnosis related to the abnormal BMI, such as: For a BMI <= 19: * Underweight * Weight loss * Cachexia * Anorexia * Malnourished, mild, moderate or severe Or: * BMI is not significant * Other (please specify) * Unable to determine Use of terms such as suspected, likely, concern for, or probable (associated with a specific diagnosis that is being evaluated, monitored, or treated as if it exists) are acceptable and can be coded in the inpatient setting, when documented at the time of discharge. Thank you, Eliza Elizalde [facility], [facility]IS Extension: [phone] Please use your independent medical judgment in providing your response. THIS QUERY IS PART OF THE PERMANENT MEDICAL RECORD Provider Response: Moderate Protein-Calorie Malnutrition
--- NOTE | 2021-01-01 10:44 | MHC.CDI.CONC ---
CDI Concurrent Query Documentation Clarification: PHYSICIAN'S DOCUMENTATION REQUEST Date of Query: 01/01/21 1045 Patient Name: Rachel Sutton Admit Date: 12/31/20 Dear Doctor, A review of the medical record indicates additional documentation may be needed. Please review below and update the documentation accordingly. Risk Factors/Clinical Indicators/Treatments BMI 15.9 Falling at skilled nursing If possible, please provide an associated diagnosis related to the abnormal BMI, such as: For a BMI <= 19: Underweight Weight loss Cachexia Anorexia Malnourished, mild, moderate or severe Or: BMI is not significant Other (please specify) Unable to determine Use of terms such as suspected, likely, concern for, or probable (associated with a specific diagnosis that is being evaluated, monitored, or treated as if it exists) are acceptable and can be coded in the inpatient setting, when documented at the time of discharge. Thank you, Eliza Elizalde [facility], [facility] Extension: [phone] Please use your independent medical judgment in providing your response. THIS QUERY IS PART OF THE PERMANENT MEDICAL RECORD Provider Response: Moderate Protein-Calorie Malnutrition
--- NOTE | 2021-01-01 10:48 | HO.PM.IMPN ---
Subjective Subjective Date of Service: 01/01/21 Interval History: Seen in f/u for AFIB, fall facial injury. Converted to sinus rythm Review of Systems no chest pain no sob no palpitation no fever Physical Exam Vital Signs: Vital Signs: Last Vital Signs Temp 98.1 F 01/01/21 07:21 Pulse 70 01/01/21 09:29 Resp 18 01/01/21 07:21 BP 174/87 H 01/01/21 09:29 Pulse Ox 94 01/01/21 07:21 Body Mass Index 15.8 General: AO X 3, no acute distress Resp: CTA bilateral CVS: S1,S2,RRR GI: +BS, NT, no distention Skin: Neuro: motor grossly intact Psych: appropriate affect Objective Data Active Medications Acetaminophen (Acetaminophen 325 Mg Tablet) 650 mg PO Q6H PRN PRN Reason: Pain, Mild (Pain Scale 1-3) Diltiazem HCl 125 mg/ Sodium (Chloride) 125 mls @ 0 mls/hr IVCONT .Q0M [facility]; Protocol Last Titration: 01/01/21 04:25 Dose: 0 mg/hr, 0 mls/hr Documented by: ROSEANNA Cefazolin Sodium/Dextrose (Ancef) 2 gm in 50 mls @ 100 mls/hr IV Q8H [facility] Last Infusion: 01/01/21 06:00 Dose: 0 mls/hr Documented by: ROSEANNA Losartan Potassium (Losartan Potassium 50 Mg Tablet) 100 mg PO DAILY [facility]; Protocol Last Admin: 01/01/21 09:29 Dose: 100 mg Documented by: FLYNN Magnesium Hydroxide (Milk Of Magnesia 30 Ml Oral.Susp) 30 ml PO DAILY PRN PRN Reason: Constipation Melatonin (Melatonin 3 Mg Tablet) 3 mg PO BEDTIME PRN PRN Reason: Insomnia Metoprolol Tartrate (Metoprolol Tartrate 25 Mg Tablet) 25 mg PO BID [facility]; Protocol Last Admin: 01/01/21 09:29 Dose: 25 mg Documented by: FLYNN Multivitamins/Vitamin C (Multivitamin Tablet) 1 tab PO DAILY [facility] Last Admin: 01/01/21 10:01 Dose: Not Given Documented by: FLYNN Non-Admin Reason: Patient Refused Potassium Chloride (Potassium Chloride Er 10 Meq Capsule.Er) 20 meq PO DAILY [facility] Last Admin: 01/01/21 10:02 Dose: Not Given Documented by: FLYNN Non-Admin Reason: Patient Refused Senna (Sennosides 8.6 Mg Tablet) 17.2 mg PO BEDTIME PRN PRN Reason: Constipation Sodium Chloride (0.9 % Sodium Chloride Flush 3 Ml Syringe) 3 ml IVFLUSH QSHIFT [facility] Last Admin: 01/01/21 09:30 Dose: 3 ml Documented by: FLYNN Thiamine HCl (Thiamine Hcl 100 Mg Tablet) 100 mg PO DAILY [facility] Last Admin: 01/01/21 10:03 Dose: Not Given Documented by: FLYNN Non-Admin Reason: Patient Refused Labs CBC & Chem 7: 12/31/20 00:29 01/01/21 06:01 Labs: Laboratory Results - last 24 hr 01/01/21 06:01 Anion Gap 14 Estim Creat Clear Calc 47.6 Estimated GFR > 60 Random Glucose 112 Calcium 10.1 Assessment and Plan (1) Atrial fibrillation: Status: Acute (2) Syncope: Status: Acute Assessment and Plan: ?85/F with falls coming from care home with fall and found to have new onset AFIB with RVR 1/new AFIB with RVR-converted to sinus rythm with Dig and cardizem yesterday -Not candidate for anticoagulation due to falls, especially now with serious injury and ptetial brain bleed -defer further testing to cardiology 2/ Fall--resulting in right neck and right periorbital echymosis.. hip xray, CT head, face negative 3/ Staph Aureues bacteremia from last admission, she was to be on Cefazolin via picc line for 38 mores days, will continue this 4/ HTN--continue Losartan 5/DVT prophylaxis--compression device, start heparin sub cut Quality Stroke Does the patient have a stroke diagnosis?: No VTE Prior VTE?: No VTE Risk Level:: Medical - moderate - high VTE Device Contraindication: N/A - Device Ordered VTE Drug Contraindication: Treatment Not Indicated
--- NOTE | 2021-01-01 11:39 | P.CONCA_ITS ---
History of Present Illness History of Present Illness Date of Service: 01/01/21 Requesting physician: Uday Freire Chief complaint: Fall, possible syncope Narrative: I was requested to see Rachel in cardiology consultation today for possible atrial fibrillation as well as fall question related to syncope. 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 Patient is a poor historian appears to be mildly confused. However she says when she gets up she gets lightheaded and then she falls and says she might be losing consciousness. She denies any other cardiac symptoms. Yesterday EKG was performed the ED and there was concern for atrial fibrillation with rapid ventricular response, however reviewing the EKG this appears to be sinus rhythm with PACs and short bursts of PACs as well as possible short burst of multifocal atrial rhythm. This is not atrial fibrillation. However there were other reported fast heart rate, there was no corresponding EKG performed at this time. Her monitor shows evidence of sinus rhythm with PACs. Her old EKGs suggest sinus rhythm with PACs. She has no prior history of atrial fibrillation. She was recently hospitalized with fall and was subsequently noted to have MSSA bacteremia which was treated with IV antibiotics and subsequently released to nursing facility for rehab due to deconditioning. Patient has prior history of alcohol abuse and smoking. She denies any prior cardiac history. Currently denies any chest pain. Heart rate is well controlled. No orthostatic vitals have been performed as per the nursing staff she is very unstable on her feet. Review of Systems Review of Systems: Yes Unobtainable due to mental status PMFSH Past Medical History Medical History Alcohol use Anxiety Back pain Benign essential hypertension Dermatitis, eczematoid Falls Hyponatremia Impaired fasting glucose Polycythemia Pure hypercholesterolemia Smoker Staphylococcus aureus bacteremia Family History Family History Father Family history non-contributory Mother Family history non-contributory Surgical History Surgical History History of cataract extraction with lens replacement Status post total abdominal hysterectomy and bilateral salpingo-oophorectomy (RAMON-BSO) Social History Social History Household Members: None Housing: Senior [facility] Do you presently have visiting nurse or other home services: No Alcohol intake: former Patient Tobacco Use Status: Former Tobacco user Tobacco use type: Cigarette Cigarettes Per Day: 8 e-Cigarette/Vaping Use: Never Used Second Hand Smoke Exposure: No Use of substances other than those prescribed or required for medical reasons: No Currently Displaying Signs/Symptoms of Drug Intoxication Withdrawal: No Have you been hit, kicked, punched, or otherwise hurt by someone within the past year? If so, by whom?: No Do you feel safe in your current relationship?: No Current Relationship Is there a partner from a previous relationship who is making you feel unsafe now?: No Are you made to feel afraid or neglected: No Advance Directives: Yes Advance Directives on File: Yes Advance Directives Date on File: 12/01/20 Do you have thoughts of harming others: None Do you have a plan to hurt others: No Plan Recently lost weight without trying: Unsure Nutrition Risks: No Nutritional Risk Patient : No : No Poor oral hygiene: No service: No Meds Allergies Allergy/AdvReac Type Severity Reaction Status Date / Time No Known Allergies Allergy Verified 07/09/20 08:52 [No Known Allergies*] Active Medications: Current Medications Acetaminophen (Acetaminophen 325 Mg Tablet) 650 mg PO Q6H PRN PRN Reason: Pain, Mild (Pain Scale 1-3) Heparin Sodium (Porcine) (Heparin Sodium,Porcine 5,000 Unit/Ml Vial) 5,000 unit SUBCUT Q12H [facility] Diltiazem HCl 125 mg/ Sodium (Chloride) 125 mls @ 0 mls/hr IVCONT .Q0M [facility]; Protocol Last Titration: 01/01/21 04:25 Dose: 0 mg/hr, 0 mls/hr Documented by: Cefazolin Sodium/Dextrose (Ancef) 2 gm in 50 mls @ 100 mls/hr IV Q8H [facility] Last Infusion: 01/01/21 06:00 Dose: Infused Documented by: Sodium Chloride (Ns) 500 mls @ 500 mls/hr IV .Q1H [facility] Stop: 01/01/21 12:44 Losartan Potassium (Losartan Potassium 50 Mg Tablet) 100 mg PO DAILY [facility]; Protocol Last Admin: 01/01/21 09:29 Dose: 100 mg Documented by: Magnesium Hydroxide (Milk Of Magnesia 30 Ml Oral.Susp) 30 ml PO DAILY PRN PRN Reason: Constipation Melatonin (Melatonin 3 Mg Tablet) 3 mg PO BEDTIME PRN PRN Reason: Insomnia Metoprolol Tartrate (Metoprolol Tartrate 25 Mg Tablet) 25 mg PO BID [facility]; Protocol Last Admin: 01/01/21 09:29 Dose: 25 mg Documented by: Multivitamins/Vitamin C (Multivitamin Tablet) 1 tab PO DAILY [facility] Last Admin: 01/01/21 10:01 Dose: Not Given Documented by: Potassium Chloride (Potassium Chloride Er 10 Meq Capsule.Er) 20 meq PO DAILY [facility] Last Admin: 01/01/21 10:02 Dose: Not Given Documented by: Senna (Sennosides 8.6 Mg Tablet) 17.2 mg PO BEDTIME PRN PRN Reason: Constipation Sodium Chloride (0.9 % Sodium Chloride Flush 3 Ml Syringe) 3 ml IVFLUSH QSHIFT [facility] Last Admin: 01/01/21 09:30 Dose: 3 ml Documented by: Thiamine HCl (Thiamine Hcl 100 Mg Tablet) 100 mg PO DAILY [facility] Last Admin: 01/01/21 10:03 Dose: Not Given Documented by: Home Medications Medication Instructions Recorded Confirmed Last Taken Type acetaminophen 325 mg tablet 975 mg PO Q4H PRN 12/31/20 12/31/20 Unknown History (Tylenol) multivitamin 1 tab PO DAILY 12/31/20 12/31/20 Unknown History potassium chloride 10 mEq 20 meq PO DAILY 12/31/20 12/31/20 Unknown History tablet,extended release (Klor-Con) thiamine HCl (vitamin B1) 100 mg 100 mg PO DAILY 12/31/20 12/31/20 Unknown History tablet Physical Exam Vital Signs: Vital Signs: Last Vital Signs Temp 98 F 01/01/21 10:51 Pulse 85 01/01/21 10:59 Resp 20 01/01/21 10:51 BP 150/82 H 01/01/21 10:59 Pulse Ox 94 01/01/21 10:59 Body Mass Index 15.8 Const: General: cooperative, comfortable, no acute distress, alert and awake Nutritional Appearance: underweight and other (Frail elderly woman) Orientation/consciousness: oriented to person and oriented to place HENMT: Head: Yes normocephalic and Yes other (Large bruise and swelling of the right face, with bruise extending up to th) Neck: Neck: Yes trachea midline, Yes supple and Yes no JVD Resp: Effort & Inspection: decreased respiratory effort Auscultation: no rhonchi, no wheezes and diminished lung sounds Cardio: Jugular venous distension: no JVD Palpation: abnormal PMI Rate: regular rate Rhythm: abnormal rhythm with ectopic beats Heart sounds: S1 normal heart sound present, S2 normal heart sound present, no click and no gallops GI: Auscultation: normal bowel sounds Skin: General skin exam: no rashes or lesions noted and ecchymosis Neuro: General: oriented to person, oriented to place and no focal motor deficits Extrem: General: Yes no clubbing, cyanosis or edema Results Labs and Meds Result diagrams: 12/31/20 00:29 01/01/21 06:01 Lab results: Laboratory Results - last 24 hr 01/01/21 06:01 Sodium 134 L Potassium 4.2 Chloride 98 Carbon Dioxide 26 Anion Gap 14 BUN 18 H Creatinine 0.65 Estim Creat Clear Calc 47.6 Estimated GFR > 60 Random Glucose 112 Calcium 10.1 EKG according to my interpretation shows normal sinus rhythm with multifocal atrial beats as well as short burst of PACs. No sustained atrial fibrillation. Assessment and Plan (1) Syncope: Qualifiers: Syncope type: unspecified Qualified Code(s): R55 - Syncope and collapse Status: Acute Patient's clinical presentation will fall, unwitnessed question syncopal episode. Likely given what she describes as she gets dizzy and then she falls over, highly likely for orthostatic hypotension causing her falls and syncope. Need to check for orthostatic hypotension which require specific treatment. Probably appears to be on the dehydrated side. Would hydrate her as well. If she remains persistently orthostatic despite adequate hydration may consider medications to prevent orthostatic hypotension such as midodrine. Discussed with the hospitalist team. Overall prognosis is guarded. She does have underlying cardiomyopathy and severe pulmonary hypertension by last echocardiogram. However she has no clinical signs of congestive heart failure at this point time. Gentle IV hydration should be pursued. EKG is not consistent with atrial fibrillation, although hospitalist team says that she was tachycardic for some period time. EKG recorded in the chart do not show atrial fibrillation. I do not think she needs anticoagulation and would be high risk for anticoagulation anyway given her recurrent falls and tendency to injury. Will sign of the case. Thank you for allowing us to partake in her care Procedures Date of Service Date of Service: 01/01/21
--- NOTE | 2021-01-01 12:12 | MHC.CLN ---
Addendum entered by Tonya Alvarez, FRANCISCO 01/01/21 12:16: REVIEWED AND AGREE WITH BELOW PROVIDER'S ASSESSMENT Original Note: RE: CONSULT PT IS SEVERELY MALNOURISHED IN THE CONTEXT OF CHRONIC ILLNESS PT PRESENTS WITH SEVERE SUBCUTANEOUS FAT DEPLETION IN TRICEPS, 9% WT LOSS X 1 MONTH, AND A BMI OF 15.8 DIET RX: REGULAR-APPROPRIATE PT REPORTS DECREASED APPETITE AND NOT EATING BREAKFAST; POOR PO INTAKE SINCE ADMISSION PT REFUSED ENSURE ENLIVE SUPPLEMENT (ALTERNATE SUPPLEMENT OFFERED: ENSURE CLEAR; ALSO REFUSED) MONITOR PO INTAKE SEE CLINICAL NUTRITION ASSESSMENT
--- NOTE | 2021-01-01 12:27 | MHC.CM.PN ---
per multi dis rounds pt may be dcd today or over the weekend request to aguila to go for auth from [facility]
[2021-01-01] MEDS: 0.9 % Sodium Chloride 500 ML IV (16:32)
[2021-01-02] VITALS (8 sets, daily range): BP systolic 111–170; BP diastolic 52–83; PULSE 75–89; RESP 18–20; TEMP 36.2–37.2; O2SAT 90–96
[2021-01-02] MEDS: ceFAZolin Sodium/Dextrose,Iso 2 GM/50 ML PIGGYBACK IV ×3 (05:34→20:25)
[2021-01-02] MEDS: Multivitamin TABLET 1 TAB PO (07:55)
[2021-01-02] MEDS: 0.9 % Sodium Chloride Flush 3 ML SYRINGE IVFLUSH (07:55)
[2021-01-02] MEDS: Metoprolol Tartrate 25 MG TABLET PO ×2 (07:55→20:25)
[2021-01-02] MEDS: Losartan Potassium 50 MG TABLET 100 MG PO (07:55)
[2021-01-02] MEDS: Thiamine HCL 100 MG TABLET PO (07:55)
--- NOTE | 2021-01-02 10:34 | PM.DS ---
DS: Providers Provider Date of Service: 01/02/21 Date of admission: 12/31/20 09:24 Primary care physician: Unknown Physician Consults: 12/31/20 09:24 Consult to Cardiology Routine Consulting Provider: Patrice Brian Reason for consultation: new afib Has provider been notified: No DS: Diagnosis Discharge Diagnosis (1) Syncope: Status: Acute DS: Summary Hospital Course Hospital Course: 85/year female with HTN, anxiety, h/o Alcohol use, recurrent falls, polycythemia, HLD amongst others. She was admitted to the hospital from December 01 through December 08 for issues related to weakness and fall and at that time treated for MSSA bacteremia with Kefzol. She? was discharged to [facility] where she remained.? She is brought to the emergency room on occasion because of a fall the reportedly was not witness.? She sustained a large bruise around her right neck area and around the right eye.? She does state that she felt dizzy.? In the ED she is noted to be in atrial fibrillation with rapid ventricular response with a heart rate having been up to 160s.? She is not currently complaining of palpitation, chest pain or shortness Hospital course: Time Spent with Patient Time attestation: Total time spent providing and/or coordinating discharge services: Physical Exam Vital Signs: Vital Signs: Last Vital Signs Temp 98 F 01/02/21 07:11 Pulse 78 01/02/21 07:55 Resp 20 01/02/21 07:11 BP 170/79 H 01/02/21 07:55 Pulse Ox 96 01/02/21 07:11 Body Mass Index 15.8 DS: Data Data Completed and Pending Completed studies during hospitalization [Text1]: Procedures Insertion of Infusion Device into Superior Vena Cava, Percutaneous Approach (12/01/20) Discharge Plan Discharge Anticipated Discharge Date/Time: 01/02/21 10:02 Patient Disposition: er SNF Discharge Diagnosis: syncope, tachycardia Referrals: Physician,Unknown [Primary Care Provider] - 1 Week Discharge Medications: New amlodipine 5 mg Tablet 5 mg PO DAILY Qty: 30 RF: 0 Continued losartan 100 mg tablet 100 mg PO DAILY Qty: 90 RF: 1 cefazolin 1 gram Recon Soln 2 g IV Q8H 38 Days RF: 0 multivitamin Tablet 1 tab PO DAILY RF: 0 thiamine HCl (vitamin B1) 100 mg Tablet 100 mg PO DAILY RF: 0 potassium chloride [Klor-Con 10] 10 mEq tablet extended release 20 meq PO DAILY RF: 0 acetaminophen [Tylenol] 325 mg Tablet 975 mg PO Q4H PRN (Reason: Pain, Moderate) RF: 0 Diet: advance to usual diet Activity on Discharge: As tolerated Stand Alone Forms: Patient Portal Discharge page Care Plan Goals: Fall preventions Health Concerns: Frequent falls Plan of Treatment: Take all fall precautions, orthostatic hypotension
--- NOTE | 2021-01-02 11:43 | HO.PM.IMPN ---
Subjective Subjective Date of Service: 01/02/21 Interval History: Seen in f/u for syncope, tachycardia, falls, facial injury.. Patient has wicked orthostatic hypOtension that very symptomatic. Systolic blood pressure went from 170-110 upon sitting and nearly undetectable upon standing and nearly collapsed. Review of Systems Dizziness upon standing no sob no fever no chest pain Physical Exam Vital Signs: Vital Signs: Last Vital Signs Temp 98 F 01/02/21 11:01 Pulse 88 01/02/21 11:01 Resp 20 01/02/21 11:01 BP 111/71 01/02/21 11:01 Pulse Ox 95 01/02/21 11:01 Body Mass Index 15.8 General: AO X , no acute distress Resp: CTA bilateral CVS: S1,S2,RRR, no edema GI: +BS, NT, no distention Skin; echymosis on face--see fidning from yesterday's exam, essentially unchanged Neuro: motor grossly intact Psych: appropriate affect Objective Data Active Medications Acetaminophen (Acetaminophen 325 Mg Tablet) 650 mg PO Q6H PRN PRN Reason: Pain, Mild (Pain Scale 1-3) Amlodipine Besylate (Amlodipine Besylate 5 Mg Tablet) 5 mg PO DAILY [facility]; Protocol Last Admin: 01/02/21 11:07 Dose: Not Given Documented by: MANDA Non-Admin Reason: positive orthostatic BP hold permd Heparin Sodium (Porcine) (Heparin Sodium,Porcine 5,000 Unit/Ml Vial) 5,000 unit SUBCUT Q12H [facility] Last Admin: 01/02/21 00:58 Dose: Not Given Documented by: ROSEANNA Non-Admin Reason: Patient Refused Diltiazem HCl 125 mg/ Sodium (Chloride) 125 mls @ 0 mls/hr IVCONT .Q0M [facility]; Protocol Last Titration: 01/01/21 04:25 Dose: 0 mg/hr, 0 mls/hr Documented by: ROSEANNA Cefazolin Sodium/Dextrose (Ancef) 2 gm in 50 mls @ 100 mls/hr IV Q8H [facility] Last Infusion: 01/02/21 06:05 Dose: 0 mls/hr Documented by: ROSEANNA Losartan Potassium (Losartan Potassium 50 Mg Tablet) 100 mg PO DAILY [facility]; Protocol Last Admin: 01/02/21 07:55 Dose: 100 mg Documented by: MANDA Magnesium Hydroxide (Milk Of Magnesia 30 Ml Oral.Susp) 30 ml PO DAILY PRN PRN Reason: Constipation Melatonin (Melatonin 3 Mg Tablet) 3 mg PO BEDTIME PRN PRN Reason: Insomnia Metoprolol Tartrate (Metoprolol Tartrate 25 Mg Tablet) 25 mg PO BID [facility]; Protocol Last Admin: 01/02/21 07:55 Dose: 25 mg Documented by: MANDA Multivitamins/Vitamin C (Multivitamin Tablet) 1 tab PO DAILY [facility] Last Admin: 01/02/21 07:55 Dose: 1 tab Documented by: MANDA Potassium Chloride (Potassium Chloride Er 10 Meq Capsule.Er) 20 meq PO DAILY [facility] Last Admin: 01/02/21 07:59 Dose: Not Given Documented by: MANDA Non-Admin Reason: refused unable to swallow Senna (Sennosides 8.6 Mg Tablet) 17.2 mg PO BEDTIME PRN PRN Reason: Constipation Sodium Chloride (0.9 % Sodium Chloride Flush 3 Ml Syringe) 3 ml IVFLUSH QSHIFT [facility] Last Admin: 01/02/21 07:55 Dose: 3 ml Documented by: MANDA Thiamine HCl (Thiamine Hcl 100 Mg Tablet) 100 mg PO DAILY [facility] Last Admin: 01/02/21 07:55 Dose: 100 mg Documented by: MANDA Labs CBC & Chem 7: 12/31/20 00:29 01/01/21 06:01 Assessment and Plan (1) Atrial fibrillation: Status: Inactive (2) Syncope: Status: Acute Assessment and Plan: ?85/F with falls and syncope from group home and initally found to be tachycardic and question of afib but close review showed sinus tachycardia with APC, She is markedly orthostic likely causing her falls 1/Syncope with colapse--She has supine HTN and postural significant orthostatic and thus poses management challenge--she may have non-diabetic type, age related autonomic insuficiency -Hold will discuss BP meds with cardiology -Hydrate and reassess -May ultimately need midodrine of florinef 2/ Fall (due to above)--resulting in right neck and right periorbital echymosis.. hip xray, CT head, face negative 3/ Staph Aureues bacteremia from last admission, she was to be on Cefazolin via picc line fo, will continue this 4/ HTN--continue Losartant 5/DVT prophylaxis--compression device, start heparin sub cut Quality Stroke Does the patient have a stroke diagnosis?: No VTE Prior VTE?: No VTE Risk Level:: Medical - moderate - high VTE Device Contraindication: N/A - Device Ordered VTE Drug Contraindication: Treatment Not Indicated
--- NOTE | 2021-01-02 11:59 | PC.NURSE ---
Attempted to obtain orthostatic BP. Laying flat BP 168/90 trending around basline. With assistance from nursing aid, patient moved to sitting position at the edge of the bed. Patient reported dizziness and not feeling well. Patient responsive but was unable to support herself sitting up. Unable to obtain BP via vital machine. Obtained mannual BP of 103/57. Two person assist required to help patient to standing position but patient nearly collapsed and was unable to stand on her own. Patient remained responsive but appeared dizzy and weak. Assisted patient to recliner but unable to obtain standing BP. Dr. Freire notified of above event and activity intolerance as well as BP findings. Amlodipine dose held per MD. No new orders at this time. Patient requiring two person max assist stand and pivot to bed. Will continue to monitor.
[2021-01-02] MEDS: 0.9 % Sodium Chloride 1,000 ML 100 ML IVCONT (13:38)
[2021-01-02] MEDS: Heparin Sodium,Porcine 5,000 UNIT/ML VIAL 5000 UNIT SUBCUT (13:39)
[2021-01-03] VITALS (8 sets, daily range): BP systolic 72–136; BP diastolic 48–70; PULSE 75–116; RESP 18–22; TEMP 36.3–37.1; O2SAT 80–94
[2021-01-03] MEDS: 0.9 % Sodium Chloride 1,000 ML 100 ML IVCONT (01:55)
[2021-01-03] MEDS: ceFAZolin Sodium/Dextrose,Iso 2 GM/50 ML PIGGYBACK IV (05:22)
--- NOTE | 2021-01-03 05:44 | PC.NURSE ---
Pt seen to be coughing up small amounts of brown sputum. Pt poor historian and unsure how long she has been coughing up this sputum. Hospitalist notified. No new orders at this time. VSS, pt still becomes dizzy with position changes in bed.
[2021-01-03] MEDS: amLODIPine Besylate 5 MG TABLET PO (09:29)
[2021-01-03] MEDS: Thiamine HCL 100 MG TABLET PO (09:29)
[2021-01-03] MEDS: Heparin Sodium,Porcine 5,000 UNIT/ML VIAL 5000 UNIT SUBCUT ×2 (09:29→22:11)
[2021-01-03] MEDS: Metoprolol Tartrate 25 MG TABLET PO (09:29)
[2021-01-03] MEDS: Losartan Potassium 50 MG TABLET 100 MG PO (09:29)
[2021-01-03] MEDS: Multivitamin TABLET 1 TAB PO (09:29)
--- NOTE | 2021-01-03 12:15 | P.PNIM_ITS ---
Subjective Subjective Date of Service: 01/03/21 Interval History: Breathing somewhat worse overnight. Productive cough of greenish sputum noted. Sats maintained with supplemental O2. Patient states she is short of breath with minimal movement. Portable chest done today demonstrates new right middle lobe infiltrate. Constitutional Constitutional: Denies body ache(s), Denies chills and Denies lethargy Eyes Eyes: Reports no additional eye complaints Cardiovascular Cardiovascular: Denies chest pain at rest, Denies chest pain with activity and Reports dyspnea Respiratory Respiratory: Reports chest congestion, Reports cough and Reports dyspnea Gastrointestinal Gastrointestinal: Reports no additional gastrointestinal complaints Genitourinary Genitourinary: Reports no additional female genitourinary complaints Musculoskeletal Musculoskeletal: Reports no additional musculoskeletal complaints Physical Exam Vital Signs: Vital Signs: Last Vital Signs Temp 98 F 01/03/21 10:57 Pulse 75 01/03/21 10:57 Resp 20 01/03/21 10:57 BP 120/69 01/03/21 10:57 Pulse Ox 90 L 01/03/21 10:57 Body Mass Index 15.8 Const: General: no acute distress and ill appearing HENMT: Other: Mucous membranes dry; oropharynx clear Eyes: Other: Janee orbital ecchymosis on the right Resp: Other: Diminished at bases with scattered expiratory wheezes. Coarse rhonchi right middle mar that do not clear with cough Cardio: Rate: regular rate Rhythm: regular rhythm Heart sounds: S1 normal heart sound present, S2 normal heart sound present and Murmur heart sound present GI: Other: Soft nontender nondistended with normoactive bowel sounds. Neuro: Other: Age-appropriate; nonfocal. Heart hearing Extrem: General: Yes normal to inspection Objective Data Active Medications Acetaminophen (Acetaminophen 325 Mg Tablet) 650 mg PO Q6H PRN PRN Reason: Pain, Mild (Pain Scale 1-3) Amlodipine Besylate (Amlodipine Besylate 5 Mg Tablet) 5 mg PO DAILY NAI; Protocol Last Admin: 01/03/21 09:29 Dose: 5 mg Documented by: NICHOLE Heparin Sodium (Porcine) (Heparin Sodium,Porcine 5,000 Unit/Ml Vial) 5,000 unit SUBCUT Q12H NAI Last Admin: 01/03/21 09:29 Dose: 5,000 unit Documented by: NICHOLE Diltiazem HCl 125 mg/ Sodium (Chloride) 125 mls @ 0 mls/hr IVCONT .Q0M [facility]; Protocol Last Titration: 01/01/21 04:25 Dose: 0 mg/hr, 0 mls/hr Documented by: ROSEANNA Cefazolin Sodium/Dextrose (Ancef) 2 gm in 50 mls @ 100 mls/hr IV Q8H [facility] Last Infusion: 01/03/21 06:02 Dose: 0 mls/hr Documented by: ROSEANNA Sodium Chloride (Ns) 1,000 mls @ 100 mls/hr IVCONT .Q10H [facility] Last Infusion: 01/03/21 09:13 Dose: 0 mls/hr Documented by: NICHOLE Losartan Potassium (Losartan Potassium 50 Mg Tablet) 100 mg PO DAILY [facility]; Protocol Last Admin: 01/03/21 09:29 Dose: 100 mg Documented by: NICHOLE Magnesium Hydroxide (Milk Of Magnesia 30 Ml Oral.Susp) 30 ml PO DAILY PRN PRN Reason: Constipation Melatonin (Melatonin 3 Mg Tablet) 3 mg PO BEDTIME PRN PRN Reason: Insomnia Metoprolol Tartrate (Metoprolol Tartrate 25 Mg Tablet) 25 mg PO BID NAI; Pr otocol Last Admin: 01/03/21 09:29 Dose: 25 mg Documented by: NICHOLE Multivitamins/Vitamin C (Multivitamin Tablet) 1 tab PO DAILY [facility] Last Admin: 01/03/21 09:29 Dose: 1 tab Documented by: NICHOLE Potassium Chloride (Potassium Chloride Er 10 Meq Capsule.Er) 20 meq PO DAILY [facility] Last Admin: 01/03/21 09:28 Dose: 20 meq Documented by: NICHOLE Senna (Sennosides 8.6 Mg Tablet) 17.2 mg PO BEDTIME PRN PRN Reason: Constipation Sodium Chloride (0.9 % Sodium Chloride Flush 3 Ml Syringe) 3 ml IVFLUSH QSHIFT [facility] Last Admin: 01/03/21 09:13 Dose: Not Given Documented by: NICHOLE Non-Admin Reason: IV Running Thiamine HCl (Thiamine Hcl 100 Mg Tablet) 100 mg PO DAILY [facility] Last Admin: 01/03/21 09:29 Dose: 100 mg Documented by: NICHOLE Labs CBC & Chem 7: 12/31/20 00:29 01/01/21 06:01 Assessment and Plan (1) Right middle lobe pulmonary infiltrate: Status: Acute Assessment and Plan: ?85/F with falls and syncope from retirement and initally found to be tachycardic and question of afib but close review showed sinus tachycardia with APC, She is markedly orthostic likely causing her falls 1. RML infiltrate: Will DC cefazolin in favor of ceftriaxone and azithromycin. Will add nebulizer therapies. Titrate O2 to maintain sats over 90%. Follow clinical response question addition of steroids in future if no improvement 2. Syncope with colapse--She has supine HTN and postural significant o rthostatic and thus poses management challenge--she may have non-diabetic type, age related autonomic insuficiency await Cardiology input 3. Fall (due to above)--resulting in right neck and right periorbital echymosis.. hip xray, CT head, face negative 4. Staph Aureues bacteremia : Will switch to ceftriaxone to cover infiltrate and Staph aureus bacteremia 4/ HTN--continue Losartant 5/DVT prophylaxis:heparin sub cut Quality Stroke Does the patient have a stroke diagnosis?: No VTE Prior VTE?: No VTE Risk Level:: Medical - moderate - high VTE Device Contraindication: N/A - Device Ordered VTE Drug Contraindication: Treatment Not Indicated
[2021-01-03] MEDS: cefTRIAXone sodium 1 GM in 0.9 % Sodium Chloride 50 ML IV (13:28)
[2021-01-03] MEDS: Azithromycin 500 MG in 0.9 % Sodium Chloride 250 ML 125 MG IV (13:28)
[2021-01-03 13:48] LABS: Alanine Aminotransferase < 6 U/L (0-31); Albumin Level 2.7 g/dL (3.5-5.0); Alkaline Phosphatase 88 U/L (39-117); Anion Gap 18 (12-20); Aspartate Amino Transferase 23 U/L (5-31); Bilirubin Total 0.8 mg/dL (0.0-1.0); Blood Urea Nitrogen 50 mg/dL (9-16); Calcium 10.1 mg/dL (8.4-10.2); Carbon Dioxide 24 mmol/L (22-29); Chloride 98 mmol/L (96-108); Creatinine Clr Calc Pharmacy 34.8; Estimated Glomerular Filt Rate > 60; Glucose Fasting 173 mg/dL (60-99); Potassium 3.4 mmol/L (3.3-5.1); Sodium 137 mmol/L (135-145); Total Protein 5.3 g/dL (6.5-8.0)
[2021-01-03] MEDS: 0.9 % Sodium Chloride Flush 3 ML SYRINGE IVFLUSH (22:11)
--- NOTE | 2021-01-03 23:10 | PM.EVENT ---
Event Note Date of Service: 01/03/21 Event Note: Patient became hypoxic with oxygen in the 70s. Patient requiring 5 L of oxygen to maintain O2 above 90%. Chest x-ray obtained showed bilateral pleural effusion which are new from date of admission. Echo reviewed from November of this year shows an ejection fraction of 35-40%. Patient started on IV Lasix, orders for BNP, troponin, and Cardiology consult have been placed
--- NOTE | 2021-01-03 23:49 | PM.EVENT ---
Event Note Date of Service: 01/04/21 Event Note: I was called by the hospitalist Dr. Mathew to evaluate this patient who has been admitted with underlying infiltrating appears to have a small bilateral pleural effusion with new onset hypotension and tachycardia. Upon reviewing the case, I initially suggested albumin and to get an EKG or look at the monitor to determine the rhythm that the patient has right now. In the meantime I will discuss with the family if indeed they would like the patient to come to the ICU despite of the DNR DNI decision on the chart. At 11:45 p.m. I spoke to the patient's daughter Zoila Murry phone number [phone] with whom I discussed the clinical scenario and the course to follow if the patient was to come to the ICU, in her own words ?I absolutely do not want her to go to the ICU and I do not want anything else done other than a regular medical treatment, if she was to decompensate and we will understand, otherwise please let me know . I reassure her diet her decision will be respected and that we will communicate these to the above-mentioned physician. NO ICU transfer continue medical care and DNR/DNI
--- NOTE | 2021-01-03 23:50 | P.EN_ITS ---
Event Note Date of Service: 01/03/21 Event Note: Received another message from nurse the patient's blood pressure m anually is 72/48. Evaluation of patient at bedside showed awake, alert patient that has difficulty hearing. Patient clinically does not appear to be in volume overload. Spoke to ICU given the patient's hypoxia as seen on chest x-ray as well as her hypotension, ICU DIANA contacted daughter who stated that she does not want the patient to have admission to the ICU central lines or pressors. At thi s time will give 25 % albumin and monitor. She is DNR DNI.
[2021-01-03] MEDS: Albumin Human 25 % 50 ML 100 ML IV (23:56)
[2021-01-04 00:05] LABS: B Type Natriuretic Peptide 103 pg/mL (<100); Troponin-I High Sensitivity 44.5 ng/L (<3.5-17.0)
--- NOTE | 2021-01-04 00:11 | PC.NURSE ---
At 2200 pt noted to have new audible congestion, spO2 80% on 5L NC. Pt improved on nrb spO2 >90%. Dr Mathew notified, cxr ordered showing new pleural effusions. Lasix ordered. BP at time of administration 72/48 manual, hr 90-100s. Dr Mathew to bedside, icu and family notified. No aggressive measures at this time per family, pt to stay on imc. Lasix dc. Albumin ordered and administered.
[2021-01-04 00:34] VITALS: BP 90/60
[2021-01-04 01:58] VITALS: BP 88/48; PULSE 106; RESP 18; O2SAT 96
[2021-01-04 03:43] VITALS: BP 97/74; PULSE 100; RESP 20; TEMP 36.1; O2SAT 95
--- NOTE | 2021-01-04 05:54 | P.EN_ITS ---
Event Note Date of Service: 01/04/21 Event Note: pt at 5:35 due to severe hypotension, and hypoxic resp daren lure. no aggressive measures were done per daughter's wishes
--- NOTE | 2021-01-04 05:54 | PM.EVENT ---
Event Note Date of Service: 01/04/21 Event Note: pt at 5:35 due to severe hypotension, and hypoxic resp failure. no aggressive measures were done per daughter's wishes
--- NOTE | 2021-01-04 06:04 | PC.NURSE ---
At 530 hr dropping to 30s on tele, pt unresponsive. MD notified, pt lost pulse at 0535. Family notified. NEDS notified, pt declined. Post mortem care completed.
--- NOTE | 2021-04-21 12:57 | P.DS_ITS ---
DS: Providers Provider Date of Service: 04/21/21 Date of admission: 12/31/20 09:24 Date of discharge: 01/04/21 Primary care physician: Unknown Physician Consults: 12/31/20 09:24 Consult to Cardiology Routine Consulting Provider: Patrice Brian Reason for consultation: new afib Has provider been notified: No 01/03/21 23:07 Consult to Cardiology Routine Consulting Provider: Patrice Brian Reason for consultation: CHF Has provider been notified: No DS: Diagnosis Discharge Diagnosis (1) Right middle lobe pulmonary infiltrate: Status: Acute DS: Summary Hospital Course Hospital Course: 85/year female with HTN, anxiety, h/o Alcohol use, recurrent falls, polycythemia, HLD amongst others. She was admitted to the hospital from December 01 through December 08 for issues related to weakness and fall and at that time treated for MSSA bacteremia with Kefzol. She? was discharged to [facility] where she remained.? She is brought to the emergency room on occasion because of a fall the reportedly was not witness.? She sustained a large bruise around her right neck area and around the right eye.? She does state that she felt dizzy.? In the ED she is noted to be in atrial fibrillation with rapid ventricular response with a heart rate having been up to 160s.? She is not currently complaining of palpitation, chest pain or shortness Hospital course: seen by Cardiology; found to be extremely orthostatic likely secondary to dehydration. Patient was volume repleted; was initially on a Cardizem drip however this was DC secondary to normalization of rate. On the evening of discharge, patient became tachycardic. Patient subsequently became more hypotensive secondary to tachycardia; case was discussed with ICU and family. Family declined any aggressive intervention. Patient continue to have a rapid ventricular rate and likely developed cardiac demand ischemia that likely led to acute systolic heart failure. She ultimately succumbed to this episode. Family made aware Time Spent with Patient Time attestation: Total time spent providing and/or coordinating discharge services: Discharge coordination time: Greater than 30 minutes Quality: Stroke Does the patient have a stroke diagnosis?: No Physical Exam Vital Signs: Vital Signs: Last Vital Signs Temp 97.0 F 01/04/21 03:43 Pulse 100 01/04/21 03:43 Resp 20 01/04/21 03:43 BP 97/74 01/04/21 03:43 Pulse Ox 95 01/04/21 03:43 BMI result Body Mass Index 15.8 DS: Data Data Completed and Pending Completed studies during hospitalization [Text1]: Procedures Insertion of Infusion Device into Superior Vena Cava, Percutaneous Approach (12/01/20) Discharge Plan Discharge Date/Time: 01/04/21 05:35 Anticipated Discharge Date/Time: 01/02/21 10:02 Patient Disposition: Discharge Diagnosis: syncope, tachycardia Referrals: Physician,Unknown J [Primary Care Provider] - 1 Week Discharge Medications: New amlodipine 5 mg Tablet 5 mg PO DAILY Qty: 30 RF: 0 Continued losartan 100 mg tablet 100 mg PO DAILY Qty: 90 RF: 1 cefazolin 1 gram Recon Soln 2 g IV Q8H 38 Days RF: 0 multivitamin Tablet 1 tab PO DAILY RF: 0 thiamine HCl (vitamin B1) 100 mg Tablet 100 mg PO DAILY RF: 0 potassium chloride [Klor-Con 10] 10 mEq tablet extended release 20 meq PO DAILY RF: 0 acetaminophen [Tylenol] 325 mg Tablet 975 mg PO Q4H PRN (Reason: Pain, Moderate) RF: 0 Diet: advance to usual diet Activity on Discharge: As tolerated Stand Alone Forms: Patient Portal Discharge page Care Plan Goals: Fall preventions Health Concerns: Frequent falls Plan of Treatment: Take all fall precautions, orthostatic hypotension Discharge Date/Time: 01/04/21 06:33
== END 2021-01-04 06:33 | disposition expired | DRG 312 ==
LOC: HO.ED 12-31 06:23 → HO.EDOVER 12-31 09:52 → HO.IMC 12-31 17:57
PROVIDERS: Internal Medicine; Admitting Provider Internal Medicine; Emergency Provider Emergency Medicine; Visit Provider Hospitalist
DX: I95.1 Orthostatic hypotension (principal); J96.01 Acute respiratory failure with hypoxia; I50.21 Acute systolic (congestive) heart failure; R78.81 Bacteremia; E44.0 Moderate protein-calorie malnutrition; Z68.1 Body mass index [BMI] 19.9 or less, adult; I48.20 Chronic atrial fibrillation, unspecified; I24.8 Other forms of acute ischemic heart disease; I48.91 Unspecified atrial fibrillation; I11.0 Hypertensive heart disease with heart failure; E86.0 Dehydration; F41.9 Anxiety disorder, unspecified; R29.6 Repeated falls; R00.0 Tachycardia, unspecified; Z91.81 History of falling; B95.61 Methicillin susceptible Staphylococcus aureus infection as the cause of diseases classified elsewhere; E78.5 Hyperlipidemia, unspecified; D75.1 Secondary polycythemia; Z20.822 Contact with and (suspected) exposure to COVID-19; Z79.899 Other long term (current) drug therapy; Z66 Do not resuscitate
CPT/HCPCS: 36415; 70450; 70486; 71045; 72125; 72170; 80048; 80053; 83880; 84484; 85025; 87635; 93005; 97110; 97116; 97162; 99285; J0456; J0690; J0696; J1160; P9047